=== PATIENT | female | born 1970 | race Two or more races ===

== ENCOUNTER 2019-01-23 21:51 | Emergency (ER) | payer SELFPAY ==
[~2019-01-23] VITALS: Ht 157.5 cm; Wt 79.4 kg
[2019-01-23 22:16] VITALS: BP 171/88
[2019-01-23] MEDS ORDERED: methylPREDNISolone SOD SUCC 125 MG/2 ML VL IV ONE (22:30)
[2019-01-24] MEDS ORDERED: diphenhdrAMINE HCL 50 MG/1 ML VL IV ONE (01:00)
== END 2019-01-24 01:58 | disposition home or self-care (01) ==
LOC: ER 21:52
DX: T78.40XA Allergy, unspecified, initial encounter (principal); X58.XXXA Exposure to other specified factors, initial encounter
CPT/HCPCS: 96374; 96375; 99283; J1200; J2930

== ENCOUNTER → 2019-08-10 | Emergency (ER) | payer MEDICAID, OTHER ==
[~2019-08-10] VITALS: Ht 160 cm; Wt 87.5 kg
[~2019-08-10] MED LIST: ACET250T3 PO; ACETAMINOPHEN 325 MG TAB PO ONE; CHOL20007 PO; HYDR-4833 PO; HYDROcodone-ACET 5/325MG TAB PO ONE; IOHEXOL 300 MG/ML 100ML BOTTLE IJ ONE; LISI-646 PO; MORPHINE SULFATE 4 MG/ML SYR/VIAL IV ONE; MULTLIQ36 PO; ONDA-144 PO; ONDANSETRON HCL 4 MG/2 ML VIAL IV ONE; POLY33504 PO; POTASSIUM CHL 20MEQ/100ML 100 ML IV ONE; PRAV20TA3 PO; SODIUM CHLORIDE 0.9% 1,000 ML IVB ONE; cefTRIAXone SOD 1,000 MG VL ONE
[2019-08-10 21:46] LABS: Basophils # (auto) 0 10 ^3/uL (0-0.2); Basophils % (auto) 0.1 % (0.0-2.0); Eosinophils # (auto) 0 10 ^3/uL (0-0.8); Hemoglobin 14.9 g/dL (12.2-16.2); Lymphocytes # (auto) 0.3 10 ^3/uL (0.4-5.4); Lymphocytes % (auto) 2.3 % (10.0-50.0); Mean Corpuscular Hemoglobin 31.9 pg (28.0-32.0); Mean Corpuscular Hgb Conc. 34.5 g/dL (32.0-36.0); Mean Corpuscular Volume 92.4 fL (80.0-100.0); Monocytes # (auto) 0.6 10 ^3/uL (0-1.3); Monocytes % (auto) 4.5 % (0.0-12.0); Neutrophils # (auto) 13.3 10 ^3/uL (1.6-8.6); Neutrophils % (auto) 93.1 % (37.0-80.0); Platelet Count (auto) 165 10^3/uL (140-450); Red Blood Cells 4.66 10^6/uL (4.0-5.20); Red Cell Distribution Width 13.7 % (11.8-14.3); White Blood Cell 14.3 10^3/uL (4.4-10.8)
[2019-08-10 21:57] LABS: Alanine Aminotransferase 124 U/L (13-56); Albumin 3.1 g/dL (3.4-5.0); Amylase 23 U/L (25-115); Anion Gap 10 (5-15); Aspartate Aminotransferase 133 U/L (15-37); Blood Urea Nitrogen 8 mg/dL (7-18); Calcium 8.6 mg/dL (8.5-10.1); Carbon Dioxide 22 mmol/L (21-32); Chloride 103 mmol/L (98-107); GFR African American 145 mL/min; GFR Non-African American 120 mL/min; Glucose 147 mg/dL (74-106); Lipase 49 U/L (73-393); Magnesium 1.9 mg/dL (1.6-2.6); Potassium 3.3 mmol/L (3.5-5.1); Sodium 135 mmol/L (136-145)
[2019-08-10 22:00] LABS: Alkaline Phosphatase 157 U/L (45-117); Total Protein 7.2 g/dL (6.4-8.2)
[2019-08-11 01:57] LABS: Urine Bacteria FEW /hpf (None Seen); Urine Blood 3+ /uL (Negative); Urine Specific Gravity > 1.050 (1.001-1.035); Urine WBC 1 /hpf (0 - 5)
[2019-08-11 05:30] VITALS: BP 129/77
== END | disposition home or self-care (01) ==
LOC: ER 19:59
DX: K56.7 Ileus, unspecified (principal); G89.18 Other acute postprocedural pain; R11.2 Nausea with vomiting, unspecified; Z98.84 Bariatric surgery status
CPT/HCPCS: 36415; 74177; 76705; 80053; 81001; 82150; 83605; 83690; 83735; 84702; 85025; 87040; 96361; 96374; 96375; 99285; J2270; J2405; J7030; Q9967

== ENCOUNTER 2019-08-12 18:05 | Inpatient (IN) | payer MEDICAID ==
[~2019-08-12] VITALS: Ht 160 cm; Wt 87.9 kg
[2019-08-12 18:45] LABS: Basophils # (auto) 0 10 ^3/uL (0-0.2); Basophils % (auto) 0.3 % (0.0-2.0); Eosinophils # (auto) 0 10 ^3/uL (0-0.8); Hemoglobin 14.1 g/dL (12.2-16.2); Lymphocytes # (auto) 0.4 10 ^3/uL (0.4-5.4); Lymphocytes % (auto) 2.8 % (10.0-50.0); Mean Corpuscular Hemoglobin 31.9 pg (28.0-32.0); Mean Corpuscular Hgb Conc. 34.4 g/dL (32.0-36.0); Mean Corpuscular Volume 92.5 fL (80.0-100.0); Monocytes # (auto) 0.7 10 ^3/uL (0-1.3); Monocytes % (auto) 5.1 % (0.0-12.0); Neutrophils # (auto) 13.1 10 ^3/uL (1.6-8.6); Neutrophils % (auto) 91.8 % (37.0-80.0); Platelet Count (auto) 193 10^3/uL (140-450); Red Blood Cells 4.44 10^6/uL (4.0-5.20); Red Cell Distribution Width 13.5 % (11.8-14.3); White Blood Cell 14.3 10^3/uL (4.4-10.8)
[2019-08-12 19:06] LABS: Albumin 2.7 g/dL (3.4-5.0); Calcium 8.6 mg/dL (8.5-10.1); Potassium 3.5 mmol/L (3.5-5.1)
[2019-08-12 19:10] LABS: BUN/Creatinine Ratio 16.9; Bilirubin, Total 2.7 mg/dL (0.2-1.0); Total Protein 7.4 g/dL (6.4-8.2)
[2019-08-12] MEDS ORDERED: SODIUM CHLORIDE 0.9% 1,000 ML IVB ONE (20:17)
[2019-08-12] MEDS ORDERED: ONDANSETRON HCL 4 MG/2 ML VIAL IV ONE (20:30)
[2019-08-12] MEDS ORDERED: MORPHINE SULFATE 4 MG/ML SYR/VIAL IV ONE (20:30)
[2019-08-12 20:44] LABS: INR 1.13 (0.9-1.15); Partial Thromboplastin Time 39.7 sec (23.64-32.05)
[2019-08-12] MEDS ORDERED: ACETAMINOPHEN 325 MG TAB PO ONE (21:00)
[2019-08-12 21:08] LABS: Urine WBC None Seen /hpf (0 - 5)
[2019-08-12 21:17] LABS: Urine Amorphous Crystal MANY /hpf (None Seen); Urine Bacteria NONE SEEN /hpf (None Seen); Urine Blood 2+ /uL (Negative); Urine Specific Gravity 1.027 (1.001-1.035)
[2019-08-13] MEDS ORDERED: SODIUM CHLORIDE 0.9% 1,000 ML IV SCH ×3 (02:37→16:00)
[2019-08-13] MEDS ORDERED: POTASSIUM CHL 20MEQ/100ML 100 ML IV ONE (02:45)
[2019-08-13] MEDS ORDERED: ACETAMINOPHEN 500 MG TAB PO PRN (02:45)
[2019-08-13 03:18] VITALS: BP 143/81
[2019-08-13] MEDS ORDERED: ACETAMINOPHEN 325 MG TAB PO PRN (03:30)
[2019-08-13 03:33] LABS: Basophils # (auto) 0 10 ^3/uL (0-0.2); Basophils % (auto) 0.2 % (0.0-2.0); Eosinophils # (auto) 0 10 ^3/uL (0-0.8); Eosinophils % (auto) 0.1 % (0.0-7.0); Hematocrit 38.7 % (36.0-46.0); Lymphocytes # (auto) 0.5 10 ^3/uL (0.4-5.4); Lymphocytes % (auto) 4.2 % (10.0-50.0); Mean Corpuscular Hemoglobin 31.1 pg (28.0-32.0); Mean Corpuscular Hgb Conc. 33.7 g/dL (32.0-36.0); Mean Corpuscular Volume 92.3 fL (80.0-100.0); Monocytes # (auto) 0.9 10 ^3/uL (0-1.3); Monocytes % (auto) 7.7 % (0.0-12.0); Neutrophils # (auto) 10.7 10 ^3/uL (1.6-8.6); Neutrophils % (auto) 87.8 % (37.0-80.0); Platelet Count (auto) 178 10^3/uL (140-450); Red Blood Cells 4.19 10^6/uL (4.0-5.20); Red Cell Distribution Width 13.8 % (11.8-14.3); White Blood Cell 12.1 10^3/uL (4.4-10.8)
[2019-08-13 03:52] LABS: Albumin 2.4 g/dL (3.4-5.0); Calcium 8.3 mg/dL (8.5-10.1); Magnesium 2.1 mg/dL (1.6-2.6); Potassium 3.1 mmol/L (3.5-5.1)
[2019-08-13 03:53] LABS: Lactate Dehydrogenase 195 U/L (84-246)
[2019-08-13 03:55] LABS: Bilirubin, Total 2.3 mg/dL (0.2-1.0); Total Protein 6.3 g/dL (6.4-8.2)
[2019-08-13 04:35] LABS: CRP High Sensitivity > 19.0 mg/dL (< 0.3)
[2019-08-13 05:00] VITALS: BP 133/88
[2019-08-13] MEDS ORDERED: PRAV20TA3 PO (05:30)
[2019-08-13] MEDS ORDERED: POLY33504 PO (05:30)
[2019-08-13] MEDS ORDERED: MULTLIQ36 PO (05:30)
[2019-08-13] MEDS ORDERED: ACET250T3 PO (05:30)
[2019-08-13] MEDS ORDERED: CHOL20007 PO (05:30)
[2019-08-13] MEDS ORDERED: LISI-646 PO (05:30)
[2019-08-13] MEDS ORDERED: ONDA-144 PO (05:30)
[2019-08-13] MEDS ORDERED: HYDR-4833 PO (05:30)
[2019-08-13] MEDS: MORPHINE SULFATE 4 MG/ML SYR/VIAL IV PRN ×4 (05:35→23:06)
[2019-08-13] MEDS: ONDANSETRON HCL 4 MG/2 ML VIAL IV PRN ×2 (05:35→23:06)
[2019-08-13] MEDS ORDERED: ALBUTEROL SULF HFA 90MCG INH 200DOSE IN SCH (06:00)
[2019-08-13] MEDS: ALBUTEROL SULF HFA 90MCG INH 200DOSE IN SCH ×3 (06:00→22:30)
[2019-08-13] MEDS: HYDROcodone-ACET 5/325MG TAB PO PRN (07:16)
[2019-08-13 07:21] LABS: Calcium 8.2 mg/dL (8.5-10.1); Potassium 3.2 mmol/L (3.5-5.1)
[2019-08-13 07:27] LABS: Basophils # (auto) 0 10 ^3/uL (0-0.2); Basophils % (auto) 0.1 % (0.0-2.0); Eosinophils # (auto) 0 10 ^3/uL (0-0.8); Eosinophils % (auto) 0.1 % (0.0-7.0); Hematocrit 38.4 % (36.0-46.0); Lymphocytes # (auto) 0.5 10 ^3/uL (0.4-5.4); Lymphocytes % (auto) 3.7 % (10.0-50.0); Mean Corpuscular Hemoglobin 31.4 pg (28.0-32.0); Mean Corpuscular Volume 92.6 fL (80.0-100.0); Monocytes # (auto) 0.9 10 ^3/uL (0-1.3); Monocytes % (auto) 6.7 % (0.0-12.0); Neutrophils # (auto) 11.6 10 ^3/uL (1.6-8.6); Neutrophils % (auto) 89.4 % (37.0-80.0); Platelet Count (auto) 164 10^3/uL (140-450); Red Blood Cells 4.15 10^6/uL (4.0-5.20); Red Cell Distribution Width 13.5 % (11.8-14.3); White Blood Cell 12.9 10^3/uL (4.4-10.8)
[2019-08-13] MEDS: cefTRIAXone 1GM/50ML D5W 50 ML IV SCH ×2 (07:50→09:33)
[2019-08-13 09:00] VITALS: BP 147/78
[2019-08-13] MEDS: CHOLECALCIFEROL (VITD3) 1,000IU=25mCg TAB PO SCH (09:28)
[2019-08-13] MEDS: ASCORBIC ACID 500 MG TAB PO SCH (09:29)
[2019-08-13] MEDS: AZITHROMYCIN 250 MG TAB PO SCH (09:30)
[2019-08-13] MEDS: PANTOPRAZOLE 40 MG TAB PO SCH (09:31)
[2019-08-13] MEDS: ENOXAPARIN SOD 40 MG/0.4 ML SYRINGE SC SCH (09:31)
[2019-08-13] MEDS: ZINC SULFATE 220mg CAP or TAB PO SCH (09:32)
[2019-08-13] MEDS ORDERED: POTASSIUM CHL 20 Meq TABLET PO ONE (10:00)
[2019-08-13 12:32] VITALS: BP 136/67
[2019-08-13] MEDS ORDERED: PIPERACILLIN-TAZO 4.5GM 100 ML IV ONE (14:00)
[2019-08-13 16:42] VITALS: BP 137/80
[2019-08-13] MEDS: PIPERACILLIN-TAZOB 3.375GM 100 ML IV SCH (18:00)
[2019-08-13 20:00] VITALS: BP 127/70
[2019-08-13] MEDS ORDERED: ALBUTEROL SULFATE 90 MCG MDI IN ONE (22:24)
[2019-08-14] MEDS: PIPERACILLIN-TAZOB 3.375GM 100 ML IV SCH ×5 (00:42→23:37)
[2019-08-14] MEDS: ALBUTEROL SULF HFA 90MCG INH 200DOSE IN SCH ×3 (06:25→21:08)
[2019-08-14] MEDS: MORPHINE SULFATE 4 MG/ML SYR/VIAL IV PRN ×3 (06:26→21:21)
[2019-08-14] MEDS: DOCUSATE SOD 100 MG CAP PO PRN (06:26)
[2019-08-14 10:00] VITALS: BP 132/74
[2019-08-14 10:03] LABS: Hepatitis B Surface Antibody Negative
[2019-08-14] MEDS: CHOLECALCIFEROL (VITD3) 1,000IU=25mCg TAB PO SCH (10:25)
[2019-08-14] MEDS: ASCORBIC ACID 500 MG TAB PO SCH (10:25)
[2019-08-14] MEDS: PANTOPRAZOLE 40 MG TAB PO SCH (10:25)
[2019-08-14] MEDS: ENOXAPARIN SOD 40 MG/0.4 ML SYRINGE SC SCH (10:25)
[2019-08-14] MEDS: ZINC SULFATE 220mg CAP or TAB PO SCH (10:26)
[2019-08-14] MEDS: AZITHROMYCIN 250 MG TAB PO SCH (10:26)
[2019-08-14 10:27] LABS: Hepatitis A Total Antibody Positive
[2019-08-14 11:32] LABS: Hepatitis B Core Total AB Negative
[2019-08-14 11:33] LABS: Hepatitis B Surface Antigen Negative (Negative); Hepatitis C Antibody Negative (Negative)
[2019-08-14] MEDS: HYDROcodone-ACET 5/325MG TAB PO PRN (12:06)
[2019-08-14 14:30] VITALS: BP 110/70
[2019-08-14 17:53] VITALS: BP 129/76
[2019-08-14 21:10] VITALS: BP 135/70
[2019-08-14 21:43] VITALS: BP 128/68
[2019-08-14 22:00] VITALS: BP 128/68
[2019-08-15 01:09] LABS: Amphetamine Screen, Urine NEGATIVE (NEGATIVE); Barbiturate Scree,Urine NEGATIVE (NEGATIVE); Benzodiazephine Screen, Urine NEGATIVE (NEGATIVE); Cannabinoid Screen, Urine NEGATIVE (NEGATIVE); Cocaine Screen, Urine NEGATIVE (NEGATIVE); Opiate Scree,Urine POSITIVE (NEGATIVE); Phencyclidine Screen, Urine NEGATIVE (NEGATIVE)
[2019-08-15] MEDS: HYDROcodone-ACET 5/325MG TAB PO PRN ×2 (03:56→10:45)
[2019-08-15] MEDS: DOCUSATE SOD 100 MG CAP PO PRN (03:57)
[2019-08-15 05:00] VITALS: BP 147/69
[2019-08-15 05:08] LABS: Hematocrit 36.3 % (36.0-46.0); Hemoglobin 12.4 g/dL (12.2-16.2); Mean Corpuscular Hemoglobin 31.4 pg (28.0-32.0); Mean Corpuscular Hgb Conc. 34.1 g/dL (32.0-36.0); Platelet Count (auto) 258 10^3/uL (140-450); Red Blood Cells 3.94 10^6/uL (4.0-5.20); Red Cell Distribution Width 13.6 % (11.8-14.3); White Blood Cell 7.8 10^3/uL (4.4-10.8)
[2019-08-15 05:22] LABS: INR 1.03 (0.9-1.15)
[2019-08-15 05:25] LABS: Basophils % (manual) 0 (0.0-2.0); Blast Cells 0; Metamyelocytes % 0; Myelocytes % 0; Promyelocytes % 0; Reactive Lymphocytes 0
[2019-08-15 05:27] LABS: Albumin 2.2 g/dL (3.4-5.0); Calcium 8.2 mg/dL (8.5-10.1); Potassium 3.2 mmol/L (3.5-5.1)
[2019-08-15 05:30] LABS: Bilirubin, Total 0.8 mg/dL (0.2-1.0); Total Protein 6.6 g/dL (6.4-8.2)
[2019-08-15] MEDS: PIPERACILLIN-TAZOB 3.375GM 100 ML IV SCH ×3 (05:34→17:50)
[2019-08-15] MEDS: ALBUTEROL SULF HFA 90MCG INH 200DOSE IN SCH (06:30)
[2019-08-15 07:07] LABS: Band Neutrophils % (manual) 3; Eosinophils % (manual) 1 (0-7); Lymphocytes % (manual) 35 (10.0-50.0); Monocytes % (manual) 7 (0-12)
[2019-08-15 08:37] VITALS: BP 129/85
[2019-08-15] MEDS: ASCORBIC ACID 500 MG TAB PO SCH (09:33)
[2019-08-15] MEDS: ZINC SULFATE 220mg CAP or TAB PO SCH (09:33)
[2019-08-15] MEDS: AZITHROMYCIN 250 MG TAB PO SCH (09:34)
[2019-08-15] MEDS: CHOLECALCIFEROL (VITD3) 1,000IU=25mCg TAB PO SCH (09:34)
[2019-08-15] MEDS: PANTOPRAZOLE 40 MG TAB PO SCH (09:34)
[2019-08-15] MEDS: ENOXAPARIN SOD 40 MG/0.4 ML SYRINGE SC SCH (09:34)
[2019-08-15] MEDS ORDERED: POTASSIUM CHL 20 Meq TABLET PO ONE (11:15)
[2019-08-15 12:28] VITALS: BP 139/72
[2019-08-15 16:46] VITALS: BP 136/89
[2019-08-15] MEDS: MORPHINE SULFATE 4 MG/ML SYR/VIAL IV PRN (17:55)
[2019-08-16] MEDS: PIPERACILLIN-TAZOB 3.375GM 100 ML IV SCH ×4 (00:43→18:00)
[2019-08-16 05:00] VITALS: BP 132/81
[2019-08-16] MEDS: HYDROcodone-ACET 5/325MG TAB PO PRN (05:51)
[2019-08-16 06:12] LABS: Hemoglobin 12.3 g/dL (12.2-16.2); Red Cell Distribution Width 13.9 % (11.8-14.3)
[2019-08-16 06:19] LABS: Mean Corpuscular Hemoglobin 30.7 pg (28.0-32.0); Mean Corpuscular Hgb Conc. 33.4 g/dL (32.0-36.0); Platelet Count (auto) 304 10^3/uL (140-450); Red Blood Cells 4.02 10^6/uL (4.0-5.20); White Blood Cell 7.4 10^3/uL (4.4-10.8)
[2019-08-16 06:20] LABS: Potassium 3.5 mmol/L (3.5-5.1)
[2019-08-16 06:27] LABS: Blast Cells 0; Promyelocytes % 0
[2019-08-16 06:32] LABS: Albumin 2.2 g/dL (3.4-5.0); BUN/Creatinine Ratio 8.3; Bilirubin, Total 0.5 mg/dL (0.2-1.0); Calcium 8.2 mg/dL (8.5-10.1); Magnesium 2.2 mg/dL (1.6-2.6); Total Protein 6.4 g/dL (6.4-8.2)
[2019-08-16 07:13] LABS: Band Neutrophils % (manual) 2; Basophils % (manual) 2 (0.0-2.0); Eosinophils % (manual) 7 (0-7); Lymphocytes % (manual) 32 (10.0-50.0); Metamyelocytes % 3; Monocytes % (manual) 6 (0-12); Myelocytes % 3; Reactive Lymphocytes 2
[2019-08-16 09:00] VITALS: BP 114/62
[2019-08-16] MEDS: ENOXAPARIN SOD 40 MG/0.4 ML SYRINGE SC SCH (10:00)
[2019-08-16] MEDS ORDERED: SODIUM CHLORIDE LOCK 10 ML ONE (10:03)
[2019-08-16] MEDS ORDERED: LIDOCAINE VISCOUS 2% 15ML UD ONE (10:03)
[2019-08-16] MEDS ORDERED: diphenhdrAMINE HCL 50 MG/1 ML VL ONE (10:04)
[2019-08-16] MEDS: PANTOPRAZOLE 40 MG TAB PO SCH (10:18)
[2019-08-16 13:00] VITALS: BP 139/73
[2019-08-16] MEDS: MIDAZOLAM HCL 5 MG/ML-1ML VIAL ONE ×2 (13:40→13:43)
[2019-08-16] MEDS: fentaNYL CITRATE 100 MCG/2 ML VL ONE ×2 (13:40→13:43)
[2019-08-16 17:00] VITALS: BP 147/82
[2019-08-16] MEDS ORDERED: SUCRALFATE 1 GM/10 ML ORAL SUSP PO SCH (17:00)
== END 2019-08-16 20:40 | disposition home or self-care (01) | DRG 720 ==
LOC: ER 18:05 → TELE-EAST 18:06 → UNDOADMIN 18:06 → TELE 18:06 → TELE-CENTR 08-14 21:40
PROVIDERS: ADMIT Hospitalist; ATTEND Internal Medicine
PROC: 0DB88ZX Excision of Small Intestine, Via Natural or Artificial Opening Endoscopic, Diagnostic (ICD-10-PCS; 2019-08-16)
PROC: 0DB68ZX Excision of Stomach, Via Natural or Artificial Opening Endoscopic, Diagnostic (ICD-10-PCS; principal; 2019-08-16 13:35)
DX: A41.9 Sepsis, unspecified organism (principal); E44.0 Moderate protein-calorie malnutrition; K22.10 Ulcer of esophagus without bleeding; K83.8 Other specified diseases of biliary tract; E66.9 Obesity, unspecified; N83.209 Unspecified ovarian cyst, unspecified side; I88.9 Nonspecific lymphadenitis, unspecified; N39.0 Urinary tract infection, site not specified; Z90.49 Acquired absence of other specified parts of digestive tract; Z83.3 Family history of diabetes mellitus; Z82.49 Family history of ischemic heart disease and other diseases of the circulatory system; Z03.818 Encounter for observation for suspected exposure to other biological agents ruled out; Z68.34 Body mass index [BMI] 34.0-34.9, adult
CPT/HCPCS: 36415; 43239; 71045; 74176; 74181; 80048; 80053; 80307; 81001; 81025; 82105; 82728; 83516; 83605; 83615; 83690; 83735; 84443; 85007; 85025; 85027; 85379; 85610; 85730; 86038; 86141; 86225; 86235; 86704; 86706; 86708; 86803; 86850; 86900; 86901; 87040; 87070; 87081; 87340; 87804; 87880; 94640; 96361; 96365; 96375; G0378; J0696; J2250; J2405; J2543

== ENCOUNTER 2022-06-18 14:40 | Emergency (ER) | payer MEDICAID ==
[~2022-06-18] VITALS: Ht 160 cm; Wt 94.0 kg
[~2022-06-18 14:40] MED LIST changes: -ACETAMINOPHEN 325 MG TAB PO ONE; -HYDROcodone-ACET 5/325MG TAB PO ONE; -IOHEXOL 300 MG/ML 100ML BOTTLE IJ ONE; -LISI-646 PO; +LISI20TA28 PO; -MORPHINE SULFATE 4 MG/ML SYR/VIAL IV ONE; -ONDANSETRON HCL 4 MG/2 ML VIAL IV ONE; -POTASSIUM CHL 20MEQ/100ML 100 ML IV ONE; -SODIUM CHLORIDE 0.9% 1,000 ML IVB ONE; -cefTRIAXone SOD 1,000 MG VL ONE
[2022-06-18 15:10] VITALS: BP 123/90
[2022-06-18] MEDS ORDERED: PRED20TA2 PO (16:17)
[2022-06-18] MEDS ORDERED: AUG875T PO (16:17)
== END 2022-06-18 16:24 | disposition home or self-care (01) ==
LOC: ER 14:40
DX: J06.9 Acute upper respiratory infection, unspecified (principal); H66.92 Otitis media, unspecified, left ear; R07.89 Other chest pain; I10 Essential (primary) hypertension; E78.5 Hyperlipidemia, unspecified; Z90.49 Acquired absence of other specified parts of digestive tract; Z79.2 Long term (current) use of antibiotics; Z79.899 Other long term (current) drug therapy
CPT/HCPCS: 71046

== ENCOUNTER 2022-11-08 12:15 | Inpatient (IN) | payer MEDICAID ==
[~2022-11-08] VITALS: Ht 157.5 cm; Wt 94.9 kg
[~2022-11-08 12:15] MED LIST changes: +ACET250T20 PO; -ACET250T3 PO; +AUG875T PO; -LISI20TA28 PO; +LISI20TA56 PO; +PRED20TA2 PO
[2022-11-08 13:33] LABS: Basophils # (auto) 0.1 10 ^3/uL (0-0.2); Basophils % (auto) 0.7 % (0.0-2.0); Eosinophils # (auto) 0.3 10 ^3/uL (0-0.8); Eosinophils % (auto) 3.8 % (0.0-7.0); Hematocrit 42.6 % (36.0-46.0); Hemoglobin 14.4 g/dL (12.2-16.2); Lymphocytes # (auto) 0.8 10 ^3/uL (0.4-5.4); Lymphocytes % (auto) 10.2 % (10.0-50.0); Mean Corpuscular Hemoglobin 30.3 pg (28.0-32.0); Mean Corpuscular Hgb Conc. 33.9 g/dL (32.0-36.0); Mean Corpuscular Volume 89.5 fL (80.0-100.0); Monocytes # (auto) 0.3 10 ^3/uL (0-1.3); Monocytes % (auto) 3.4 % (0.0-12.0); Neutrophils # (auto) 6.3 10 ^3/uL (1.6-8.6); Neutrophils % (auto) 81.9 % (37.0-80.0); Nucleated Red Blood Cells % 0.2 %; Red Blood Cells 4.76 10^6/uL (4.0-5.20); White Blood Cell 7.7 10^3/uL (4.4-10.8)
[2022-11-08 13:41] LABS: Albumin 3.5 g/dL (3.4-5.0); Calcium 8.8 mg/dL (8.5-10.1); Magnesium 1.8 mg/dL (1.6-2.6); Potassium 4.2 mmol/L (3.5-5.1)
[2022-11-08 13:44] LABS: INR 1.05 (0.9-1.15); Partial Thromboplastin Time 30.5 SEC (24.5-34.5)
[2022-11-08 13:45] LABS: BUN/Creatinine Ratio 10.6 (10.0-20.0); Bilirubin, Total 1.1 mg/dL (0.2-1.0); Total Protein 6.5 g/dL (6.4-8.2)
[2022-11-08] MEDS ORDERED: OMNIPAQUE 12mg/ml 500ml ORAL SOLUTION PO ONE (13:53)
[2022-11-08] MEDS ORDERED: IOHEXOL 300 MG/ML 100ML BOTTLE IJ ONE (13:53)
[2022-11-08 13:57] LABS: Urine Bacteria NONE SEEN /hpf (None Seen); Urine Blood Negative /uL (Negative); Urine Hyaline Cast FEW /lpf (0 - 2); Urine WBC 1 /hpf (0 - 5)
[2022-11-08] MEDS: METOPROLOL TARTRATE 1MG/1ML-5ML VIAL IV SCH ×4 (14:55→16:26)
[2022-11-08] MEDS ORDERED: ADENOSINE 6 MG/2 ML INJ IV ONE (16:30)
[2022-11-08] MEDS ORDERED: AMIODARONE HCL 150 MG in D5W 5% 100 ML IV ONE (16:45)
[2022-11-08] MEDS ORDERED: DIGOXIN (250MCG/ML) 2 ML AMPULE IV ONE (17:00)
[2022-11-08] MEDS ORDERED: LACTATED RINGER'S 1,000 ML IV ONE (17:00)
[2022-11-08] MEDS ORDERED: dilTIAZem 25 MG/5 ML VIAL IV ONE (17:00)
[2022-11-08] MEDS ORDERED: AMIODARONE 450mg/250ml AE 250 ML IV SCH ×2 (17:00→23:00)
[2022-11-08] MEDS ORDERED: dilTIAZem 25 MG/5 ML VIAL IV PRN (17:00)
[2022-11-08] MEDS ORDERED: HYDROcodone-ACET 5/325MG TAB PO PRN (17:15)
[2022-11-08] MEDS ORDERED: PHENYLEPHRINE IV 250 ML IV SCH (17:15)
[2022-11-08] MEDS ORDERED: MORPHINE SULFATE INJ 2 MG/ml SYRG IV PRN (17:15)
[2022-11-08] MEDS ORDERED: ACETAMINOPHEN 325 MG TAB PO PRN (17:15)
[2022-11-08] MEDS ORDERED: DOCUSATE SOD 100 MG CAP PO PRN (17:15)
[2022-11-08] MEDS ORDERED: NITROGLYCERIN 0.4 MG SL TAB SL PRN (17:15)
[2022-11-08] MEDS ORDERED: ceFAZolin 1GM/50ML 50 ML IV ONE (18:15)
[2022-11-08] MEDS ORDERED: LORazepam 2MG/ML-1ML VIAL IV ONE (18:15)
[2022-11-08] MEDS: ENOXAPARIN SOD 100 MG/1 ML SYRINGE SC SCH (19:59)
[2022-11-08] MEDS: AMIODARONE 450mg/250ml AE 250 ML IV SCH (20:37)
[2022-11-08] MEDS: SODIUM CHLOR 0.9% PF (SALINE LOCK) 10ML VIAL/SYR IV SCH (21:50)
[2022-11-08] MEDS: DIGOXIN (250MCG/ML) 2 ML AMPULE IV SCH (23:15)
[2022-11-09] MEDS: DIGOXIN (250MCG/ML) 2 ML AMPULE IV SCH ×3 (05:15→17:15)
[2022-11-09] MEDS: SODIUM CHLOR 0.9% PF (SALINE LOCK) 10ML VIAL/SYR IV SCH ×3 (06:14→22:00)
[2022-11-09] MEDS: AMIODARONE 450mg/250ml AE 250 ML IV SCH (06:14)
[2022-11-09] MEDS: ENOXAPARIN SOD 100 MG/1 ML SYRINGE SC SCH ×2 (06:22→18:32)
[2022-11-09] MEDS ORDERED: ENOXAPARIN SOD 40 MG/0.4 ML SYRINGE SC SCH (10:00)
[2022-11-09] MEDS: CHOLECALCIFEROL (VITD3) 2,000 UNIT CAP/TAB PO SCH (10:01)
[2022-11-09] MEDS: PRAVASTATIN SODIUM 20 MG TAB PO SCH (10:02)
[2022-11-09] MEDS: MULTIPLE VITAMINS W/ MINERALS TAB PO SCH (10:02)
[2022-11-09] MEDS: LISINOPRIL 20 MG TAB PO SCH (10:03)
[2022-11-09] MEDS ORDERED: PANTOPRAZOLE 40 MG/10 ML VIAL INJ IV ONE (17:45)
[2022-11-09] MEDS ORDERED: SODIUM CHLORIDE 0.9% 1,000 ML IV ONE (18:45)
[2022-11-09 18:55] LABS: Cholesterol 151 mg/dL (< 200); HDL Cholesterol 55 mg/dL (40-59); LDL Cholesterol 86 mg/dL (< 100); Triglycerides 110 mg/dL (< 150)
[2022-11-09 22:00] VITALS: BP 151/72
[2022-11-09] MEDS ORDERED: OMEP20TA PO (22:46)
[2022-11-09] MEDS ORDERED: METO25TA5 PO (22:46)
[2022-11-09 23:02] VITALS: BP 151/72
[2022-11-10 05:00] VITALS: BP 116/51
[2022-11-10 06:03] LABS: Basophils # (auto) 0 10 ^3/uL (0-0.2); Basophils % (auto) 0.4 % (0.0-2.0); Eosinophils # (auto) 0.4 10 ^3/uL (0-0.8); Hematocrit 38.2 % (36.0-46.0); Lymphocytes # (auto) 1.3 10 ^3/uL (0.4-5.4); Mean Corpuscular Hemoglobin 30.6 pg (28.0-32.0); Mean Corpuscular Hgb Conc. 34.2 g/dL (32.0-36.0); Mean Corpuscular Volume 89.5 fL (80.0-100.0); Monocytes # (auto) 0.5 10 ^3/uL (0-1.3); Monocytes % (auto) 7.2 % (0.0-12.0); Neutrophils # (auto) 4.8 10 ^3/uL (1.6-8.6); Neutrophils % (auto) 68.4 % (37.0-80.0); Nucleated Red Blood Cells % 0.2 %; Red Blood Cells 4.26 10^6/uL (4.0-5.20); Red Cell Distribution Width 14.1 % (11.8-14.3)
[2022-11-10] MEDS: SODIUM CHLOR 0.9% PF (SALINE LOCK) 10ML VIAL/SYR IV SCH ×3 (06:06→22:00)
[2022-11-10] MEDS: ENOXAPARIN SOD 100 MG/1 ML SYRINGE SC SCH (06:12)
[2022-11-10 07:28] LABS: Albumin 2.8 g/dL (3.4-5.0); BUN/Creatinine Ratio 8.3 (10.0-20.0); Calcium 8.1 mg/dL (8.5-10.1); Phosphorus 3.2 mg/dL (2.5-4.90)
[2022-11-10] MEDS: METOPROLOL SUCCINATE XL 50 MG TAB PO SCH (08:35)
[2022-11-10] MEDS: PRAVASTATIN SODIUM 20 MG TAB PO SCH (08:41)
[2022-11-10] MEDS: CHOLECALCIFEROL (VITD3) 2,000 UNIT CAP/TAB PO SCH (08:41)
[2022-11-10] MEDS: ASPirin 81 mg TAB PO SCH (08:41)
[2022-11-10] MEDS: LISINOPRIL 20 MG TAB PO SCH (08:41)
[2022-11-10] MEDS: MULTIPLE VITAMINS W/ MINERALS TAB PO SCH (08:41)
[2022-11-10 09:00] VITALS: BP 116/55
[2022-11-10] MEDS ORDERED: PANTOPRAZOLE 40 MG/10 ML VIAL INJ IV SCH (10:00)
[2022-11-10 13:00] VITALS: BP 125/59
[2022-11-10] MEDS ORDERED: POTASSIUM CHL 20 Meq TABLET PO ONE (15:00)
[2022-11-10 17:00] VITALS: BP 123/57
[2022-11-10 22:01] VITALS: BP 110/51
[2022-11-11 05:00] VITALS: BP 107/48
[2022-11-11 06:18] LABS: Potassium 3.2 mmol/L (3.5-5.1)
[2022-11-11] MEDS: SODIUM CHLOR 0.9% PF (SALINE LOCK) 10ML VIAL/SYR IV SCH ×2 (06:22→14:03)
[2022-11-11 06:23] LABS: BUN/Creatinine Ratio 9.8 (10.0-20.0); Calcium 8.2 mg/dL (8.5-10.1)
[2022-11-11] MEDS ORDERED: POTASSIUM CHL 20 Meq TABLET PO ONE ×2 (07:45→20:00)
[2022-11-11] MEDS: MULTIPLE VITAMINS W/ MINERALS TAB PO SCH (08:47)
[2022-11-11] MEDS: ASPirin 81 mg TAB PO SCH (08:47)
[2022-11-11] MEDS: PRAVASTATIN SODIUM 20 MG TAB PO SCH (08:47)
[2022-11-11] MEDS: METOPROLOL SUCCINATE XL 50 MG TAB PO SCH (08:50)
[2022-11-11 08:57] VITALS: BP 112/59
[2022-11-11] MEDS ORDERED: PANTOPRAZOLE 40 MG TAB PO SCH (10:00)
[2022-11-11] MEDS ORDERED: LISINOPRIL 20 MG TAB PO SCH (10:00)
[2022-11-11] MEDS ORDERED: MET25T PO (11:49)
[2022-11-11 13:07] VITALS: BP 112/59
== END 2022-11-11 14:10 | disposition home or self-care (01) | DRG 201 ==
LOC: ER 12:15 → TELE 17:12 → TELE-WESTW 11-09 22:00
PROVIDERS: ADMIT Internal Medicine; ATTEND Internal Medicine
DX: I47.1 Supraventricular tachycardia (principal); I48.92 Unspecified atrial flutter; E11.9 Type 2 diabetes mellitus without complications; I10 Essential (primary) hypertension; E66.9 Obesity, unspecified; E78.5 Hyperlipidemia, unspecified; E87.6 Hypokalemia; Z68.38 Body mass index [BMI] 38.0-38.9, adult; Z79.82 Long term (current) use of aspirin; Z98.84 Bariatric surgery status; Z90.49 Acquired absence of other specified parts of digestive tract; Z82.49 Family history of ischemic heart disease and other diseases of the circulatory system; Z83.3 Family history of diabetes mellitus
CPT/HCPCS: 36415; 71045; 74177; 80048; 80053; 80061; 80162; 81001; 82040; 83735; 84100; 84439; 84443; 84484; 85025; 85379; 85610; 85730; 93005; 93306; 93970; 96365; 96375; C9113; G0378; J0153; J0690; J7060

== ENCOUNTER 2022-12-29 15:41 | Emergency (ER) | payer MEDICAID ==
[~2022-12-29] VITALS: Ht 160 cm; Wt 91.8 kg
[~2022-12-29 15:41] MED LIST changes: -AUG875T PO; -HYDR-4833 PO; +MET25T PO; +METO25TA5 PO; +OMEP20TA PO; -ONDA-144 PO; -POLY33504 PO; -PRED20TA2 PO
[2022-12-29 16:13] LABS: Basophils # (auto) 0 10 ^3/uL (0-0.2); Basophils % (auto) 0.8 % (0.0-2.0); Eosinophils # (auto) 0.2 10 ^3/uL (0-0.8); Eosinophils % (auto) 2.7 % (0.0-7.0); Hematocrit 43.2 % (36.0-46.0); Hemoglobin 14.1 g/dL (12.2-16.2); Lymphocytes % (auto) 34.1 % (10.0-50.0); Mean Corpuscular Hemoglobin 29.4 pg (28.0-32.0); Mean Corpuscular Hgb Conc. 32.8 g/dL (32.0-36.0); Mean Corpuscular Volume 89.7 fL (80.0-100.0); Monocytes # (auto) 0.5 10 ^3/uL (0-1.3); Monocytes % (auto) 8.5 % (0.0-12.0); Neutrophils # (auto) 3.1 10 ^3/uL (1.6-8.6); Neutrophils % (auto) 53.9 % (37.0-80.0); Red Blood Cells 4.82 10^6/uL (4.0-5.20); Red Cell Distribution Width 14.5 % (11.8-14.3); White Blood Cell 5.8 10^3/uL (4.4-10.8)
[2022-12-29 16:33] LABS: Alanine Aminotransferase 17 U/L (7-40); Alkaline Phosphatase 114 U/L (46-116); Anion Gap 9.6 (5-15); Aspartate Aminotransferase 14 U/L (13-40); BUN/Creatinine Ratio 28.1 (10.0-20.0); Blood Urea Nitrogen 18 mg/dL (9-23); Calcium 9.4 mg/dL (8.7-10.4); Carbon Dioxide 22.4 mmol/L (20-30); Chloride 106 mmol/L (98-107); Glucose 109 mg/dL (74-106); Potassium 4.3 mmol/L (3.5-5.1); Sodium 138 mmol/L (136-145)
[2022-12-29 16:34] LABS: Albumin 4.2 g/dL (3.2-4.8); Bilirubin, Total 1.8 mg/dL (0.2-1.0); Total Protein 6.6 g/dL (5.7-8.2)
[2022-12-29 17:18] LABS: Urine Bacteria FEW /hpf (None Seen); Urine Blood Negative /uL (Negative); Urine Clarity Clear (Clear); Urine Color Colorless (Yellow); Urine Protein, UAD Negative (Negative); Urine Specific Gravity 1.006 (1.001-1.035); Urine Urobilinogen Normal (Negative); Urine WBC <1 /hpf (0 - 5)
[2022-12-29 20:39] VITALS: BP 125/82; PULSE 88; RESP 18; O2SAT 98
== END 2022-12-29 20:41 | disposition home or self-care (01) ==
LOC: ER 15:41
DX: R07.9 Chest pain, unspecified (principal); R00.2 Palpitations; R94.6 Abnormal results of thyroid function studies; R06.02 Shortness of breath; Z32.02 Encounter for pregnancy test, result negative
CPT/HCPCS: 36415; 71045; 80053; 81001; 81025; 83880; 84443; 84484; 85025; 93005

== ENCOUNTER 2023-02-01 03:21 | Emergency (ER) | payer MEDICAID ==
[~2023-02-01] VITALS: Ht 160 cm; Wt 91.3 kg
[2023-02-01 03:52] LABS: Basophils # (auto) 0 10 ^3/uL (0-0.2); Basophils % (auto) 0.6 % (0.0-2.0); Eosinophils # (auto) 0.2 10 ^3/uL (0-0.8); Eosinophils % (auto) 2.3 % (0.0-7.0); Hematocrit 39.8 % (36.0-46.0); Hemoglobin 13.2 g/dL (12.2-16.2); Lymphocytes # (auto) 1.6 10 ^3/uL (0.4-5.4); Lymphocytes % (auto) 23.8 % (10.0-50.0); Mean Corpuscular Hemoglobin 29.9 pg (28.0-32.0); Mean Corpuscular Hgb Conc. 33.1 g/dL (32.0-36.0); Mean Corpuscular Volume 90.5 fL (80.0-100.0); Monocytes # (auto) 0.4 10 ^3/uL (0-1.3); Monocytes % (auto) 6.2 % (0.0-12.0); Neutrophils # (auto) 4.6 10 ^3/uL (1.6-8.6); Neutrophils % (auto) 67.1 % (37.0-80.0); White Blood Cell 6.8 10^3/uL (4.4-10.8)
[2023-02-01 04:05] VITALS: PULSE 69; RESP 12; O2SAT 91
[2023-02-01 04:09] LABS: Alanine Aminotransferase 14 U/L (7-40); Albumin 4.3 g/dL (3.2-4.8); Alkaline Phosphatase 109 U/L (46-116); Anion Gap 6 (5-15); Aspartate Aminotransferase 14 U/L (13-40); BUN/Creatinine Ratio 23.6 (10.0-20.0); Bilirubin, Total 0.6 mg/dL (0.2-1.0); Blood Urea Nitrogen 17 mg/dL (9-23); Calcium 9.3 mg/dL (8.7-10.4); Carbon Dioxide 24 mmol/L (20-30); Chloride 110 mmol/L (98-107); Glucose 102 mg/dL (74-106); Potassium 3.7 mmol/L (3.5-5.1); Sodium 140 mmol/L (136-145); Total Protein 6.9 g/dL (5.7-8.2)
[2023-02-01 05:55] VITALS: BP 128/62; PULSE 58; RESP 18; TEMP 97.9; O2SAT 99
== END 2023-02-01 05:57 | disposition home or self-care (01) ==
LOC: ER 03:21
DX: I48.92 Unspecified atrial flutter (principal); R00.2 Palpitations; I10 Essential (primary) hypertension; E78.5 Hyperlipidemia, unspecified; Z90.49 Acquired absence of other specified parts of digestive tract
CPT/HCPCS: 36415; 71045; 80053; 84484; 85025; 93005

== ENCOUNTER 2023-03-24 19:43 | Emergency (ER) | payer MEDICAID ==
[~2023-03-24] VITALS: Ht 160 cm; Wt 94.8 kg
[2023-03-24 20:01] VITALS: BP 153/73; PULSE 80; RESP 18; O2SAT 98
== END 2023-03-25 02:46 | disposition left against medical advice (07) ==
LOC: ER 19:43
DX: T78.40XA Allergy, unspecified, initial encounter (principal); Z53.21 Procedure and treatment not carried out due to patient leaving prior to being seen by health care provider; Y92.89 Other specified places as the place of occurrence of the external cause

== ENCOUNTER 2024-11-21 06:08 | Inpatient (IN) | payer MEDICAID ==
[2024-11-17 10:15] LABS: Hematocrit 39.3 % (36.0-46.0); Hemoglobin 13.4 g/dL (12.2-16.2); Mean Corpuscular Hemoglobin 30.3 pg (28.0-32.0); Mean Corpuscular Volume 88.7 fL (80.0-100.0); Nucleated Red Blood Cells % 0.1 %
[2024-11-17 10:18] LABS: Urine Protein, UAD Negative (Negative)
[2024-11-17 10:26] LABS: INR 1.02 (0.9-1.15); Partial Thromboplastin Time 32.2 SEC (24.5-34.5); Prothrombin Time 10.8 sec (9.3-11.8)
[2024-11-17 10:39] LABS: Alanine Aminotransferase 16 U/L (7-40); Albumin 4.3 g/dL (3.2-4.8); Alkaline Phosphatase 108 U/L (46-116); Anion Gap 8 (5-15); BUN/Creatinine Ratio 14.5 (10.0-20.0); Blood Urea Nitrogen 9 mg/dL (9-23); Calcium 9.6 mg/dL (8.7-10.4); Carbon Dioxide 26 mmol/L (20-31); Glucose 86 mg/dL (74-106); Potassium 3.9 mmol/L (3.5-5.1); Sodium 142 mmol/L (136-145); Total Protein 6.4 g/dL (5.7-8.2)
[2024-11-17 10:43] LABS: Bilirubin, Total 1.6 mg/dL (0.2-1.0); Chloride 108 mmol/L (98-107)
[~2024-11-21] VITALS: Ht 160 cm; Wt 82.1 kg
[2024-11-21] MEDS: TRANEXAMIC ACID 20 ML ONE (07:09)
[2024-11-21] MEDS: BUPIVACAINE 0.25% INJ 50ML VIAL ONE (07:09)
[2024-11-21] MEDS: KETOROLAC TROMETH 30 MG/ML 1ML VIAL ONE (07:11)
[2024-11-21] MEDS: CELECOXIB 100 MG CAP ONE (07:12)
[2024-11-21] MEDS: ACETAMINOPHEN IV 100 ML IV ONE (07:12)
[2024-11-21] MEDS: GABAPENTIN 300 MG CAP PO ONE (07:12)
[2024-11-21] MEDS: GABAPENTIN 300 MG CAP ONE (07:12)
[2024-11-21] MEDS: CELECOXIB 100 MG CAP PO ONE (07:12)
[2024-11-21] MEDS: ACETAMINOPHEN IV 1000 MG/100ML (10MG/ML) IV ONE (07:12)
[2024-11-21] MEDS: CEFEPIME 1GM/ 50ML 50 ML IV ONE (07:59)
[2024-11-21] MEDS: ceFAZolin 2 GM/D5W50ml 50 ML IV ONE (07:59)
[2024-11-21] MEDS ORDERED: PROPOFOL 10 MG/ML 20 ML IV ONE ×3 (08:21→09:44)
[2024-11-21] MEDS ORDERED: GLYCOPYRROLATE 0.2 MG/ML 1ML VIAL ONE (08:21)
[2024-11-21] MEDS ORDERED: ONDANSETRON HCL 4 MG/2 ML VIAL ONE (08:21)
[2024-11-21] MEDS ORDERED: KETOROLAC TROMETH 30 MG/ML 1ML VIAL ONE (08:21)
[2024-11-21] MEDS ORDERED: LIDOCAINE 1% INJ PF 5ML AMP ONE (08:21)
[2024-11-21] MEDS: VANCOMYCIN HCL 1000 MG VL ONE (09:38)
--- NOTE | 2024-11-21 09:55 | DVHOP2 ---
Operative Report - 2 Report Details Date: 11/21/24 Preop Diagnosis: Left knee degenerative arthritis Postop Diagnosis: Left knee degenerative arthritis Surgeon: Ilda Rueda MD Game Programmer: Richa PIRES Anesthesiologist: Cezar Johnson CRNA Anesthesia: Regional Drains: Anatoliy closed wound suction Implant: DonJoy size seven femur size six tibia size 19 poly size 29 patella Consent: The patient was informed of the risks and benefits of the procedure. These include but are not limited to complications of anesthesia, postoperative infection, incomplete relief of symptoms, recurrence of symptoms, damage to blood vessels, nerves and tendons, deep venous thrombosis, pulmonary embolism and possible need for repeat surgery in the future. Complications: None Estimated Blood Loss: 75 cc Fluids: See anesthesia record Findings: Varus deformity, denuded cartilage with eburnated bone, osteophytes Indications for Surgery: Left knee degenerative arthritis with severe pain and functional impairment despite nonoperative management Name of Procedure Performed Left total knee arthroplasty Procedure Details Procedure Details: The patient was brought to the operating room and placed on the table in the supine position after being given spinal anesthetic with adequate analgesia obtained. Surgical timeout was performed verifying patient, laterality and procedure Preop patient received IV cefepime IV Ancef and IV tranexamic acid. Tourniquet was applied to the lower extremity. Lower extremity was prepped and draped in sterile fashion. Extremity was elevated, exsanguinated Esmarch, and tourniquet inflated. Midline incision was made followed by medial arthrotomy. I exposed the anterior medial and lateral tibial plateau and the anterior distal femur. Bovie and aqua mantis were used for hemostasis. I excised the anterior meniscal tissue with Bovie. I excised a portion of the fat pad with Bovie. The patella was everted and the knee flexed. I drilled the distal femur and suctioned the hole to reduce the risk of fat emboli. I inserted intramedullary guide with 5 degree valgus setting. I pinned the distal femoral cutting block anteriorly. Intramedullary kike was removed. Distal femoral cut was made and the block removed. I brought my attention to the tibia setting up the external cutting jig for the tibia paying attention to slope, rotation and varus valgus alignment. I set the depth and pinned the block. I used the external alignment kike to aid in checking alignment. Bone cut was made and bone removed releasing soft tissue attachments with Bovie. Cutting block removed. I then checked the extension gap and deemed adequate and removed the femur and tibia pins. I flexed the knee and applied the femoral sizing guide to the femur. I checked the size and external rotation setting at 90 degrees to Whites[place] line and checking the epicondylar axis. I drilled the holes then removed the sizing guide and pin. I then tapped on the 4 in 1 cutting block and checked with the carolyn wing anteriorly to make sure that I would not notch then pinned the block. Cuts were made and the block and pins were removed. Bone was removed with curved osteotome. I used a rongeur to remove any remaining osteophytes at the femur and tibia. I then used a lamina evs attendant to open up the back alternating between the medial and lateral side. Any remaining meniscal tissue was excised with scalpel. I used curved osteotome, curette and rongeur to remove any posterior osteophytes. I prophylactically coagulated with aqua mantis. I then tapped on the template for the box cut and pinned it. Box cut was made and bone removed. Template and pin removed. I then tapped on the femoral trial. I then brought my attention back to the tibia sizing it. I used the external alignment kike to make sure that rotation and alignment were good. I made a Bovie berny at the tibial tray berny identifying rotation for later use. I tried various tibial polytrials. [I then brought my attention to the patella. I sequentially dissected soft tissue with Bovie. I checked the thickness with caliper. I set the appropriate depth of cut on the cutting guide. I attached the cutting guide made my cut. I then sized the patella and made my drill holes. I then placed the patella trial with appropriate depth based on overall precut thickness. ] The patella tracked nicely without thumb pressure. I removed the trials. I pinned the tray and used the reamer and keel punch. The implants were brought into the field while bone preparation was started. I used both normal saline irrigation and the CarboJet to prepare the bone. I used the bone from the cuts to graft the femoral tunnel. Once cement was ready I applied cement to the tibial implant and tibial bone tapped it on and removed excess cement in usual fashion. In similar fashion I tapped on the femoral implant. I inserted the trial polyethylene and brought the knee into 30 degrees flexion. [I then applied the patella implant in similar fashion holding pressure with the pressurization device.] I irrigated with bactisurge irrigant. Once cement cured, I checked stability and range of motion as well as patella tracking. I tested various polys until I was satisfied. tourniquet was released and hemostasis maintained with aqua mantis. I inserted the polyethylene and again checked stability. I used a 2 grams of vancomycin half of which was placed deep and half superficial. I repaired the extensor mechanism with the knee in flexion with #1 Ethibond interrupted [id number]. Deep subcutaneous tissue was closed with 0 Vicryl. Superficial subcutaneous tissue was closed with 2-0 vicryl interrupted. Skin was closed with brianna. I then applied the [anatoliy closed wound suction]. Patient tolerated the procedure well and was brought to recovery room in stable condition. Condition Stable Disposition Still a Patient ILDA RUEDA MD Nov 21, 2024 09:55
[2024-11-21] MEDS: METOPROLOL TARTRATE 25 MG TAB PO SCH (10:00)
[2024-11-21] MEDS: LISINOPRIL 20 MG TAB PO SCH (10:00)
[2024-11-21] MEDS: PREGABALIN 25 MG CAP PO SCH (10:00)
[2024-11-21] MEDS: D5W/LACTATED RINGERS 1,000 ML IV SCH (10:00)
[2024-11-21] MEDS ORDERED: ACETAMINOPHEN 325 MG TAB PO PRN (10:00)
[2024-11-21] MEDS: acetaZOLAMIDE 250 MG TAB PO SCH (10:00)
[2024-11-21] MEDS: PRAVASTATIN SODIUM 20 MG TAB PO SCH (10:00)
[2024-11-21] MEDS ORDERED: PATIENTS OWN MEDICATION (Omeprazole (Gnp Omeprazole) 40 MG) PO SCH (10:00)
[2024-11-21 10:19] VITALS: PULSE 67; RESP 16; O2SAT 100
[2024-11-21] MEDS ORDERED: fentaNYL CITRATE 100 MCG/2 ML VL IV PRN (10:30)
[2024-11-21] MEDS ORDERED: FLUMAZENIL 0.1 MG/ML INJ 10ML MDV IV PRN (10:30)
[2024-11-21] MEDS ORDERED: ONDANSETRON HCL 4 MG/2 ML VIAL IV PRN (10:30)
[2024-11-21] MEDS ORDERED: NALOXONE HCL 0.4 MG/ML VIAL IV PRN (10:30)
[2024-11-21] MEDS ORDERED: hydrALAZINE HCL 20 MG/ML VL IV PRN (10:30)
[2024-11-21] MEDS: HYDROmorphone HCL 2 MG/ML VL/or syr IV PRN (11:31)
--- NOTE | 2024-11-21 11:44 | DVH ---
CLINICAL INDICATION: Postop TECHNIQUE: 3 radiographic views of the left knee were obtained. Comparison: None FINDINGS/IMPRESSION: There is no evidence of acute fracture or dislocation. Postsurgical changes from left knee arthroplasty.
[2024-11-21] MEDS: ACETAMINOPHEN 325 MG TAB PO SCH (13:38)
[2024-11-21 14:08] VITALS: BP 150/73; PULSE 57; RESP 16; TEMP 97.5; O2SAT 95
[2024-11-21 14:32] VITALS: BP 136/79; PULSE 63; RESP 16; TEMP 97.4; O2SAT 98
[2024-11-21] MEDS: ONDANSETRON HCL 4 MG/2 ML VIAL IV PRN (15:41)
[2024-11-21] MEDS: ceFAZolin 2 GM/D5W50ml 50 ML IV SCH (15:49)
[2024-11-21 16:30] VITALS: BP 136/79; PULSE 63; TEMP 97.4; O2SAT 98
[2024-11-21 21:00] VITALS: BP 119/75; PULSE 58; RESP 17; TEMP 97.4; O2SAT 96
[2024-11-22 01:00] VITALS: BP 103/59; PULSE 58; RESP 18; TEMP 97.7; O2SAT 97
[2024-11-22 05:00] VITALS: BP 105/64; PULSE 56; RESP 19; TEMP 98.1; O2SAT 97
[2024-11-22 06:48] LABS: Chloride 104 mmol/L (98-107); Hematocrit 32.5 % (36.0-46.0); Hemoglobin 11.1 g/dL (12.2-16.2); Mean Corpuscular Hemoglobin 30.1 pg (28.0-32.0); Mean Corpuscular Volume 88.6 fL (80.0-100.0); Nucleated Red Blood Cells % 0.1 %; Potassium 3.9 mmol/L (3.5-5.1); Sodium 140 mmol/L (136-145)
[2024-11-22 06:49] LABS: Anion Gap 8 (5-15); Carbon Dioxide 28 mmol/L (20-31)
[2024-11-22 06:50] LABS: Calcium 9.2 mg/dL (8.7-10.4)
[2024-11-22 06:54] LABS: BUN/Creatinine Ratio 21.2 (10.0-20.0); Blood Urea Nitrogen 14 mg/dL (9-23)
[2024-11-22 07:01] LABS: Glucose 118 mg/dL (74-106)
[2024-11-22 09:00] VITALS: BP 103/56; PULSE 60; RESP 16; TEMP 97.5; O2SAT 96
[2024-11-22] MEDS: PANTOPRAZOLE 40 MG TAB PO SCH (09:03)
--- NOTE | 2024-11-22 09:08 | DVHDS2 ---
Discharge Summary Date of Admission Nov 21, 2024 at 09:46 Date of Discharge: Nov 22, 2024 Labs/Diagnostic Data: Laboratory Results Test 11/22/24 05:41 11/17/24 10:00 White Blood Count 7.2 10^3/uL (4.4-10.8) Red Blood Count 3.67 10^6/uL (4.0-5.20) Hemoglobin 11.1 g/dL (12.2-16.2) Hematocrit 32.5 % (36.0-46.0) Mean Corpuscular Volume 88.6 fL (80.0-100.0) Mean Corpuscular Hemoglobin 30.1 pg (28.0-32.0) Mean Corpuscular Hemoglobin Concent 34.0 g/dL (32.0-36.0) Red Cell Distribution Width 15.0 % (11.8-14.3) Platelet Count 206 10^3/uL (140-450) Mean Platelet Volume 8.7 fL (6.9-10.8) Neutrophils (%) (Auto) 82.4 % (37.0-80.0) Lymphocytes (%) (Auto) 10.5 % (10.0-50.0) Monocytes (%) (Auto) 6.9 % (0.0-12.0) Eosinophils (%) (Auto) 0.1 % (0.0-7.0) Basophils (%) (Auto) 0.1 % (0.0-2.0) Neutrophils # (Auto) 5.9 10 ^3/uL (1.6-8.6) Lymphocytes # (Auto) 0.8 10 ^3/uL (0.4-5.4) Monocytes # (Auto) 0.5 10 ^3/uL (0-1.3) Eosinophils # (Auto) 0 10 ^3/uL (0-0.8) Basophils # (Auto) 0 10 ^3/uL (0-0.2) Nucleated Red Blood Cells 0.1 % Sodium Level 140 mmol/L (136-145) Potassium Level 3.9 mmol/L (3.5-5.1) Chloride Level 104 mmol/L (98-107) Carbon Dioxide Level 28 mmol/L (20-31) Anion Gap 8 (5-15) Blood Urea Nitrogen 14 mg/dL (9-23) Creatinine 0.66 mg/dL (0.550-1.02) Glomerular Filtration Rate Calc 104 mL/min (>90) BUN/Creatinine Ratio 21.2 (10.0-20.0) Serum Glucose 118 mg/dL (74-106) Calcium Level 9.2 mg/dL (8.7-10.4) Prothrombin Time 10.8 sec (9.3-11.8) Prothrombin Time INR 1.02 (0.9-1.15) Activated Partial Thromboplast Time 32.2 SEC (24.5-34.5) Urine Color Yellow (Yellow) Urine Clarity Clear (Clear) Urine pH 6.0 (5.0-9.0) Urine Specific [place] 1.026 (1.001-1.035) Urine Protein Negative (Negative) Urine Ketones Negative (Negative) Urine Blood Trace /uL (Negative) Urine Nitrite Negative (Negative) Urine Bilirubin Negative (Negative) Urine Urobilinogen 2 mg/dL (Negative) Urine Leukocyte Esterase Negative /uL (Negative) Urine RBC 4 /hpf (0 - 4) Urine Microscopic WBC 2 /HPF (0-5) Urine Squamous Epithelial Cells Few /hpf (<5) Urine Bacteria None seen /hpf (None Seen) Urine Mucus Few (None Seen) Urine Glucose Normal mg/dL (Normal) Total Bilirubin 1.6 mg/dL (0.2-1.0) Aspartate Amino Transferase (AST) 25 U/L (13-40) Alanine Aminotransferase (ALT) 16 U/L (7-40) Alkaline Phosphatase 108 U/L (46-116) Total Protein 6.4 g/dL (5.7-8.2) Albumin 4.3 g/dL (3.2-4.8) Other Laboratory Tests 11/22/24 05:41 Brief Hx & Hospital Course: Patient was brought to the hospital yesterday to undergo a left total knee arthroplasty, she tolerated the procedure well without complications and was kept overnight for postoperative observation. She has remained medically stable denying any overnight events but notes that she has only been able to take a few steps at bedside but has not yet gotten up walked with physical therapy today. Patient is otherwise feeling well denying any other complaints or concerns during my evaluation and advised the patient that if she is able to get up and walk with the help of physical therapy and her walker and she is able to get down the nurse's station and back to her room we may discharge her home. I advised the patient to follow up with our office in 10-14 days for her 1st postoperative evaluation. She understood and agreed. Condition at Discharge: Stable Final Diagnosis/Problems List Left knee degenerative arthritis Discharge Disposition: Home Discharge Instruct/Medications Diet: Regular Activity: See Comment Activity comment: Patient advised to remain weight-bearing as tolerated with the assistance of a walker Follow Up/Referral: Patient instructed to follow up with our office in 10-14 days for her 1st postoperative evaluation Medications: Rx sent via our outpatient EMR system Scheduled Acetazolamide (Acetazolamide), 500 MG PO Q4HR, (Reported) Cholecalciferol (Vitamin D3), 1 TAB PO DAILY, (Reported) Lisinopril (Lisinopril), 20 MG PO DAILY, (Reported) Metoprolol Tartrate (Lopressor), 12.5 MG PO BID Multiple Vitamins W/ Minerals (Multivitamin), 1 PO DAILY, (Reported) Omeprazole (Gnp Omeprazole), 40 MG PO DAILY, (Reported) Pravastatin Sodium (Pravachol Tablet), 20 MG PO DAILY, (Reported) Miscellaneous Medications Metoprolol Tartrate (Metoprolol Tartrate), 25 MG PO, (Reported) Discharge Statement: "Patient was advised to return to the ER or call 911 if any headaches, dizziness, shortness of breath, chest pain, abdominal pain, bleeding, fevers, or worsening of medical condition. Patient was counseled about treatment plan, medications, possible side effects, patientverbalized understanding. All questions were answered to the best of my ability. This discharge took greater then 30 minutes in planning, reviewing documentation, counseling the patient, and discussing with other team members." ASSESSMENT ASSESSMENT Assessment Left knee degenerative arthritis ALEXANDER PARDO Nov 22, 2024 09:08
--- NOTE | 2024-11-22 09:11 | DVHPN2 ---
Progress Note - Dictate Date Seen: Nov 22, 2024 Medical Necessity Reason Pt with a Central, PICC or Fol: No Subjective PATIENT WAS SITTING COMFORTABLY IN BED DURING MY EVALUATION REPORTS SOME POSTOPERATIVE KNEE PAIN THAT IS BEING WELL MANAGED WITH THE HELP OF PAIN MEDICATION. PATIENT NOTES THAT SHE WAS ABLE TO GET UP AND WALK AND TAKE A FEW STEPS AT BEDSIDE YESTERDAY AFTER SURGERY BUT NOTES THAT SHE HAS NOT YET GOTTEN UP TODAY. PATIENT IS OTHERWISE FEELING WELL DENYING ANY OTHER COMPLAINTS OR CONCERNS DURING MY EVALUATION. vital signs Vital Sign Date Time Temp Pulse Resp B/P (MAP) Pulse Ox O2 Delivery O2 Flow Rate FiO2 11/22/24 08:55 60 103/56 11/22/24 05:00 98.1 19 97 98.1 11/21/24 20:00 Room Air* 0 21 Total Intake and Output 11/21/24 11/21/24 11/22/24 15:00 23:00 07:00 Intake Total 100 ml 110 ml 400 ml Output Total 725 ml Balance 100 ml -615 ml 400 ml medications Current Medications Medications Dose Ordered Sig/Jurgen Route Start Time Stop Time Status Last Admin Dose Admin Acetazolamide 500 mg Q4HR PO 11/21/24 10:00 Hold Lisinopril 20 mg DAILY PO 11/21/24 10:00 Metoprolol Tartrate 25 mg DAILY PO 11/21/24 10:00 Pravastatin Sodium 20 mg DAILY PO 11/21/24 10:00 Patient Own Medication 40 mg DAILY PO 11/21/24 10:00 UNV Dextrose/Lactated Ringer's 1,000 ml @ 100 mls/hr Q10H IV 11/21/24 10:00 11/22/24 04:12 100 MLS/HR Acetaminophen 650 mg Q4HP PRN PO 11/21/24 10:00 Acetaminophen 650 mg Q6HR PO 11/21/24 12:00 11/22/24 00:01 650 MG Pregabalin 50 mg BID PO 11/21/24 10:00 11/21/24 20:55 50 MG Oxycodone HCl 5 mg Q4HP PRN PO 11/21/24 10:00 11/21/24 16:03 5 MG Oxycodone HCl 10 mg Q4HP PRN PO 11/21/24 10:00 11/22/24 04:11 10 MG Aspirin 81 mg BID PO 11/22/24 10:00 Pantoprazole Sodium 40 mg DAILY PO 11/22/24 10:00 Oxycodone HCl 10 mg ONCE PRN PO 11/21/24 10:30 Ondansetron HCl 4 mg Q4HPRN PRN IV 11/21/24 15:30 11/22/24 00:01 4 MG objective A&O x4 in no acute distress Knee range of motion grossly limited with pain on movement Sreedhar dressing clean, dry, intact, and maintaining suction No distal edema or calf tenderness to palpation Neurovascularly intact with cap refill less than 2 seconds laboratory and microbiology Laboratory Tests 11/22/24 05:41 Test 11/22/24 05:41 Range/Units Serum Glucose 118 H 74-106 mg/dL Assessment/Plan Patient to be discharged home once she has been able to get up and walk with the help of physical therapy and her walker and she has been able to get down to the nurse's station and back to her room. I instructed the patient to follow up with our office in 10-14 days for her 1st postoperative evaluation and to maintain her dressings clean, dry, intact, and maintaining suction to call our office if she has any questions or concerns. Rx sent via our outpatient EMR system. Patient understood and agreed. Plan discussed with: Patient, Spouse Capillary Refill: < 3 seconds ALEXANDER PARDO Nov 22, 2024 09:11
[2024-11-22 12:58] VITALS: BP 90/48; PULSE 73; RESP 16; TEMP 97.7; O2SAT 96
[2024-11-22 16:54] VITALS: BP 108/64; PULSE 62; RESP 16; TEMP 97.6; O2SAT 99
[2024-11-22 21:00] VITALS: BP 132/77; PULSE 61; RESP 18; TEMP 98.1; O2SAT 99
[2024-11-23 01:00] VITALS: BP 124/70; PULSE 68; RESP 18; TEMP 99.3; O2SAT 98
[2024-11-23 05:00] VITALS: BP 116/73; PULSE 64; RESP 18; TEMP 98.8; O2SAT 95
[2024-11-23 08:49] VITALS: BP 133/78; PULSE 71; RESP 17; TEMP 98.6; O2SAT 96
[2024-11-23 09:05] LABS: Chloride 105 mmol/L (98-107); Potassium 3.8 mmol/L (3.5-5.1); Sodium 143 mmol/L (136-145)
[2024-11-23 09:06] LABS: Anion Gap 7 (5-15); Calcium 9.0 mg/dL (8.7-10.4); Carbon Dioxide 31 mmol/L (20-31)
[2024-11-23 09:11] LABS: BUN/Creatinine Ratio 13.0 (10.0-20.0); Glucose 90 mg/dL (74-106)
[2024-11-23 09:12] LABS: Blood Urea Nitrogen 7 mg/dL (9-23)
[2024-11-23 09:16] LABS: Hematocrit 31.6 % (36.0-46.0); Hemoglobin 10.7 g/dL (12.2-16.2); Mean Corpuscular Hemoglobin 30.2 pg (28.0-32.0); Mean Corpuscular Volume 88.9 fL (80.0-100.0); Nucleated Red Blood Cells % 0.0 %
[2024-11-23 13:00] VITALS: BP 133/80; PULSE 62; RESP 18; TEMP 98.6; O2SAT 98
--- NOTE | 2024-11-23 17:54 | DVHPN2 ---
Progress Note - Dictate Date Seen: Nov 23, 2024 Medical Necessity Reason Pt with a Central, PICC or Fol: No Subjective PATIENT WAS LYING COMFORTABLY IN BED DURING MY EVALUATION REPORTS SOME CONTINUED POSTOPERATIVE KNEE PAIN THAT IS BEING WELL MANAGED WITH THE HELP OF PAIN MEDICATION. PATIENT NOTES THAT SHE WAS ABLE TO GET UP AND WALK WITH THE HELP OF PHYSICAL THERAPY AND WAS ABLE TO GET DOWN THE HUGGINS AND BACK TO HER BED ALBEIT WITH SOME PAIN. PATIENT IS OTHERWISE FEELING WELL DENYING ANY OTHER COMPLAINTS OR CONCERNS DURING MY EVALUATION. vital signs Vital Sign Date Time Temp Pulse Resp B/P (MAP) Pulse Ox O2 Delivery O2 Flow Rate FiO2 11/23/24 14:14 62 133/80 11/23/24 13:00 98.6 18 98 98.6 11/23/24 08:00 Room Air* 0 21 Total Intake and Output 11/22/24 11/22/24 11/23/24 15:00 23:00 07:00 Intake Total 1800 ml 1400 ml Balance 1800 ml 1400 ml medications Current Medications Medications Dose Ordered Sig/Jurgen Route Start Time Stop Time Status Last Admin Dose Admin Patient Own Medication 40 mg DAILY PO 11/21/24 10:00 UNV objective A&O x4 in no acute distress Knee range of motion grossly limited with pain on movement Sreedhar dressing clean, dry, intact, and maintaining suction No distal edema or calf tenderness to palpation Neurovascularly intact with cap refill less than 2 seconds laboratory and microbiology Laboratory Tests 11/23/24 08:15 Test 11/23/24 08:15 Range/Units Serum Glucose 90 74-106 mg/dL Assessment/Plan Patient to be discharged home once she has been able to get up and walk with the help of physical therapy and her walker and she has been able to get down to the nurse's station and back to her room. I instructed the patient to follow up with our office in 10-14 days for her 1st postoperative evaluation and to maintain her dressings clean, dry, intact, and maintaining suction to call our office if she has any questions or concerns. Rx sent via our outpatient EMR system. Patient understood and agreed. Plan discussed with: Patient Capillary Refill: < 3 seconds ALEXANDER PARDO Nov 23, 2024 17:54
== END 2024-11-23 16:34 | disposition home health service (06) | DRG 326 ==
LOC: SUR 06:08 → OVERFLOW 09:46 → EAST 14:15
PROVIDERS: ADMIT Orthopaedic Surgery; ATTEND Orthopaedic Surgery
PROC: 0SRD0J9 Replacement of Left Knee Joint with Synthetic Substitute, Cemented, Open Approach (ICD-10-PCS; principal; 2024-11-21 07:59)
DX: M17.12 Unilateral primary osteoarthritis, left knee (principal); I10 Essential (primary) hypertension; K21.9 Gastro-esophageal reflux disease without esophagitis; M21.162 Varus deformity, not elsewhere classified, left knee
CPT/HCPCS: 36415; 73562; 80048; 80053; 81001; 85025; 85610; 85730; 86850; 86900; 86901; 97110; 97116; 97163; G0378; J0131; J0169; J1100; J1885; J2405; J2704; J3490

== ENCOUNTER 2025-01-05 08:22 | Inpatient (IN) | payer MEDICAID ==
[~2025-01-05] VITALS: Ht 160 cm; Wt 75.5 kg
--- NOTE | 2025-01-05 08:33 | ECG ---
[facility] Test Date: 2025-01-05 Test Time: 08:31:55 Pat Name: CHRISTINA LEÓN Department: ED Room: 0249T Gender: F Harness Rigger: verito : [id number] Requested By: ELIZABETH VALDEZ Order Number: [id number] Reading MD: Abe Cortez Measurements Intervals Gaston Rate: 167 P: 0 SC: 0 QRS: 4 QRSD: 80 T: 39 QT: 307 QTc: 512 Interpretive Statements Atrial fibrillation with rapid V-rate Low voltage, precordial leads Electronically Signed On 01-08-2025 13:22:33 PDT by Abe Cortez Please click the below link to view image of tracing.
[2025-01-05 08:51] VITALS: PULSE 87; RESP 14; O2SAT 100
--- NOTE | 2025-01-05 08:53 | ED.PDOC ---
History of Present Illness HPI Comments 54-year-old female who is Turkmen-speaking, presents to the ER with prior medical history of hypertension, high lipids, SVT: Surgical history of cholecystectomy, hernia repair, gastric bypass and a chief complaint of palpitations. Patient reports on having palpitations and tenderness foreign unknown date but stated that she has a history of palpitations. Patient notes on taking aspirin. Patient came into the ER today due from the increasing pain of the palpitations. Denies chills, fever, N/V/D, SOB. No other associated symptoms, modifiers, recent injuries or sick contacts present at this time. Chief Complaint: Palpitations Time Seen by MD: 08:35 Primary Care Provider: GRAHAM Chaney Notes: Nurses Notes, Medications, Allergies Allergies: Coded Allergies: NO KNOWN ALLERGIES (Unverified , 01/23/19) Home Meds Active Scripts Metoprolol Tartrate (Lopressor) 25 Mg Tb, 12.5 MG PO BID for 30 Days, #30 TAB 2 Refills Prov:SASHA GALLAGHER MD 11/11/22 Reported Medications Omeprazole (Gnp Omeprazole) 20 Mg Tab, 40 MG PO DAILY, TAB 11/09/22 Metoprolol Tartrate (Metoprolol Tartrate) 25 Mg Tab, 25 MG PO for 30 Days, MG 11/09/22 Pravastatin Sodium (PRAVACHOL TABLET) 20 Mg Tb, 20 MG PO DAILY, TAB 08/13/19 Acetazolamide (Acetazolamide) 250 Mg Tab, 500 MG PO Q4HR for 30 Days, MG 0 Refills 08/13/19 Cholecalciferol (VITAMIN D3) 2,000 Unit Tab, 1 TAB PO DAILY, #30 TAB 5 Refills 08/13/19 Multiple Vitamins W/ Minerals (MULTIVITAMIN) Liq, 1 PO DAILY, LIQ 08/13/19 Lisinopril (Lisinopril) 20 Mg Tab, 20 MG PO DAILY for 30 Days, MG 08/13/19 Information Source: Patient Mode of Arrival: Ambulatory Severity: Moderate Timing: Came on: Gradually Duration: Since onset Prehospital treatment: None Past Medical History PAST MEDICAL HISTORY: High Lipids, HTN Past Medical History (Other): SVTs Surgical History: Cholecystectomy, Hernia Repair Surgical History (Other): Gastric bypass SCREEN REPAIRER CRUSHER History: Denies all SCREEN REPAIRER CRUSHER Hx Family History Family History: Reviewed,noncontributory to illness, Unknown Social History Smoker: Non-Smoker Alcohol: Denies ETOH Use Drugs: Denies Drug Use Lives In: Home Constitutional: denies: chills, diaphoresis, fatigue, fever, malaise, sweats, weakness, others EENTM: denies: blurred vision, double vision, ear bleeding, ear discharge, ear drainage, ear pain, ear ringing, eye pain, eye redness, hearing loss, mouth pain, mouth swelling, nasal discharge, nose bleeding, nose congestion, nose pain, photophobia, tearing, throat pain, throat swelling, voice changes, others Respiratory: denies: cough, hemoptysis, orthopnea, SOB at rest, shortness of breath, SOB with excertion, stridor, wheezing, others Cardiovascular: reports: palpitations; denies: chest pain, dizzy spells, diaphoresis, Dyspnea on exertion, edema, irregular heart beat, left arm pain, lightheadedness, PND, syncope, others Gastrointestinal: denies: abdomen distended, abdominal pain, blood streaked bowels, constipated, diarrhea, dysphagia, difficulty swallowing, hematemesis, melena, nausea, poor appetite, poor fluid intake, rectal bleeding, rectal pain, vomiting, others Genitourinary: denies: abnormal vagina bleeding, burning, dyspareunia, dysuria, flank pain, frequency, hematuria, incontinence, pain, , vagina discharge, urgency, others Neurological: denies: dizziness, fainting, headache, left sided numbness, left sided weakness, numbness, paresthesia, pre-existing deficit, right sided numbness, right sided weakness, seizure, speech problems, tingling, tremors, weakness, others Musculoskeletal: denies: back pain, gout, joint pain, joint swelling, muscle pain, muscle stiffness, neck pain, others Integumetry: denies: bruises, change in color, change in hair/nails, dryness, laceration, lesions, lumps, rash, wounds, others Allergic/Immunocompromised: denies: Difficulty Healing, Frequent Infections, Hives, Itching, others Hematologic/Lymphatic: denies: anemia, blood clots, easy bleeding, easy bruising, swollen glands, others Endocrine: denies: excessive hunger, excessive sweating, excessive thirst, excessive urination, flushing, intolerance to cold, intolerance to heat, unexplained weight gain, unexplained weight loss, others Psychiatric: denies: anxiety, bipolar disorder, depression, hopeless, panic disorder, schizophrenia, sleepless, suicidal, others All Other Systems: Reviewed and Negative Physical Exam General Appearance: No Apparent Distress, Normal HEENT: Normal ENT Inspection, Pharynx Normal, TMs Normal Neck: Full Range of Motion, Non-Tender, Normal, Normal Inspection Respiratory: Chest Non-Tender, Lungs Clear, No Accessory Muscle Use, No Re spiratory Distress, Normal Breath Sounds Cardiovascular: No Edema, No JVD, No Murmur, No Gallop, Normal Peripheral Pulses, Tachycardia Breast Exam: Deferred Gastrointestinal: No Organomegaly, Non Tender, No Pulsatile Mass, Normal Bowel Sounds, Soft Genitalia: Deferred Pelvic: Deferred Rectal: Deferred Extremities: No calf tenderness, Normal capillary refill, Normal inspection, Normal range of motion, Non-tender, No pedal edema Musculoskeletal : Apperance: Normal Neurologic: Alert, terrazzo laborer II-XII nml as Tested, No Motor Deficits, Normal Affect, Normal Mood, No Sensory Deficits Cerebellar Function: Normal Reflexes: Normal Skin: Dry, Normal Color, Warm Lymphatic: No Adenopathy Was a procedure done? Was a procedure done?: No EKG EKG : Pulse Rate (adult): 167 [place]: Normal Cardiac Rhythm: Afib Block: None Hypertrophy: None ST: Normal Differential Dx Considerations may include: ACS, CVA, viral syndrome, electrolyte abnormality X-Ray, Labs, Meds, VS Vital Signs Date Time Temp Pulse Resp B/P (MAP) Pulse Ox O2 Delivery O2 Flow Rate FiO2 01/05/25 11:31 67 01/05/25 11:08 144 17 93/57 (69) 96 01/05/25 10:08 143 116/80 01/05/25 09:26 120 01/05/25 08:53 167 01/05/25 08:31 167 01/05/25 08:24 98.7 104 16 138/84 100 98.7 Lab Test 01/05/25 10:31 01/05/25 09:01 01/05/25 08:36 Range/Units Troponin I High Sensitivity 12 8 </=34 ng/L Urine Color Light-yellow Yellow Urine Clarity Clear Clear Urine pH 7.0 5.0-9.0 Urine Specific [place] 1.003 1.001-1.035 Urine Protein Negative Negative Urine Ketones Negative Negative Urine Blood Negative Negative /uL Urine Nitrite Negative Negative Urine Bilirubin Negative Negative Urine Urobilinogen Normal Negative mg/dL Urine Leukocyte Esterase Negative Negative /uL Urine RBC None seen 0 - 4 /hpf Urine Microscopic WBC < 1 0-5 /HPF Urine Squamous Epithelial Cells Few <5 /hpf Urine Bacteria None seen None Seen /hpf Urine Glucose Normal Normal mg/dL White Blood Count 5.6 4.4-10.8 10^3/uL Red Blood Count 4.34 4.0-5.20 10^6/uL Hemoglobin 13.0 12.2-16.2 g/dL Hematocrit 38.4 36.0-46.0 % Mean Corpuscular Volume 88.4 80.0-100.0 fL Mean Corpuscular Hemoglobin 29.9 28.0-32.0 pg Mean Corpuscular Hemoglobin Concent 33.9 32.0-36.0 g/dL Red Cell Distribution Width 15.1 H 11.8-14.3 % Platelet Count 372 140-450 10^3/uL Mean Platelet Volume 8.8 6.9-10.8 fL Neutrophils (%) (Auto) 59.5 37.0-80.0 % Lymphocytes (%) (Auto) 29.4 10.0-50.0 % Monocytes (%) (Auto) 8.7 0.0-12.0 % Eosinophils (%) (Auto) 2.1 0.0-7.0 % Basophils (%) (Auto) 0.3 0.0-2.0 % Neutrophils # (Auto) 3.3 1.6-8.6 10 ^3/uL Lymphocytes # (Auto) 1.6 0.4-5.4 10 ^3/uL Monocytes # (Auto) 0.5 0-1.3 10 ^3/uL Eosinophils # (Auto) 0.1 0-0.8 10 ^3/uL Basophils # (Auto) 0 0-0.2 10 ^3/uL Nucleated Red Blood Cells 0.1 % Sodium Level 143 136-145 mmol/L Potassium Level 4.1 3.5-5.1 mmol/L Chloride Level 107 98-107 mmol/L Carbon Dioxide Level 23 20-31 mmol/L Anion Gap 13 5-15 Blood Urea Nitrogen 17 9-23 mg/dL Creatinine 0.65 0.550-1.02 mg/dL Glomerular Filtration Rate Calc 105 >90 mL/min BUN/Creatinine Ratio 26.2 H 10.0-20.0 Serum Glucose 99 74-106 mg/dL Calcium Level 9.3 8.7-10.4 mg/dL B-Type Natriuretic Peptide 135.33 0-100 pg/mL Current Medications Medications (Trade) Dose Ordered Sig/Jurgen Route Start Time Stop Time Status Last Admin Metoprolol Tartrate (Lopressor) 5 mg Q5M IV 01/05/25 08:45 01/05/25 11:14 DC 01/05/25 10:08 Time of 1ST Reevaluation: 09:05 Reevaluation 1ST: Unchanged Patient Education/Counseling: Diagnosis, Treatment, Prognosis Family Education/Counseling: No Family Present SEPSIS Sepsis Screen Date sepsis recognized/suspect: Jan 05, 2025 Time Sepsis recognized/suspect: 825 Recent Procedure: No On Antibiotic Therapy: No Respiratory Rate >20: No Heart Rate >90: Yes Temp<36 C (96.8 F) or >38.3 C: No SBP <90 or MAP <65 mmHG: No New Acute Mental Status Change: No Is the patient on CPAP, BIPAP,: No Physician Orders Troponin-I Hs (01/05/25 11:24) Electrocardigram (01/05/25 09:24) Electrocardigram (01/05/25 11:24) Chest Portable (01/05/25 08:39) Sodium Chloride 0.9% (01/05/25 11:15) Amiodarone 360mg/200ml Premix (Nexterone (01/05/25 11:30) Amiodarone 360mg/200ml Premix (Nexterone (01/05/25 17:30) Vital Signs Date Time Temp Pulse Resp B/P (MAP) Pulse Ox O2 Delivery O2 Flow Rate FiO2 01/05/25 11:31 67 01/05/25 11:08 144 17 93/57 (69) 96 01/05/25 10:08 143 116/80 01/05/25 09:26 120 01/05/25 08:53 167 01/05/25 08:31 167 01/05/25 08:24 98.7 104 16 138/84 100 98.7 Laboratory Tests Test 01/05/25 08:36 White Blood Count 5.6 10^3/uL (4.4-10.8) Medications Medications Dose Ordered Sig/Jurgen Route Start Time Stop Time Status Last Admin Dose Admin Metoprolol Tartrate 5 mg Q5M IV 01/05/25 08:45 01/05/25 11:14 DC 01/05/25 10:08 Departure 1 Departure Time of Disposition: 11:44 (Patient presents with AFib with RVR. Patient given fluids and started on amiodarone. Admit patient for further workup and expert consultation) Impression: Primary Impression: Atrial fibrillation with RVR Additional Impressions: Generalized weakness Shortness of breath Disposition: ADMITTED INPATIENT Admit to: Tele Condition: Guarded Critical Care Note Critical Care Time?: Yes Critical care comment: AFib with RVR Authorized and Performed by: Elizabeth Hunter MD Total critical care time: Approximately 39 minutes Due to a high probability of clinically significant, life threatening deterioration, the patient required my highest level of preparedness to intervene emergently and I personally spent this critical care time directly and personally managing the patient. This critical care time included obtaining a history; examining the patient; pulse oximetry; ordering and review of studies; arranging urgent treatment with development of a management plan; evaluation of patient's response to treatment; frequent reassessment; and, discussions with other providers. This critical care time was performed to assess and manage the high probability of imminent, life-threatening deterioration that could result in multi-organ failure. It was exclusive of separately billable procedures and treating other patients and teaching time. Please see my other sections and the rest of the note for further information on patient assessment and treatment. Stability Stability form required: No I personally scribed for ELIZABETH HUNTER MD ([email or web address]) on 01/05/25 at 08:53. El ectronically submitted by Tobi Moyer ([email or web address]). ELIZABETH HUNTER MD Jan 05, 2025 08:53
[2025-01-05 08:55] LABS: Hematocrit 38.4 % (36.0-46.0); Hemoglobin 13.0 g/dL (12.2-16.2); Mean Corpuscular Hemoglobin 29.9 pg (28.0-32.0); Mean Corpuscular Volume 88.4 fL (80.0-100.0); Nucleated Red Blood Cells % 0.1 %
[2025-01-05 09:03] LABS: Potassium 4.1 mmol/L (3.5-5.1); Sodium 143 mmol/L (136-145)
[2025-01-05 09:04] LABS: Anion Gap 13 (5-15); Calcium 9.3 mg/dL (8.7-10.4); Carbon Dioxide 23 mmol/L (20-31)
[2025-01-05 09:05] LABS: Chloride 107 mmol/L (98-107)
[2025-01-05 09:09] LABS: BUN/Creatinine Ratio 26.2 (10.0-20.0); Blood Urea Nitrogen 17 mg/dL (9-23); Glucose 99 mg/dL (74-106)
--- NOTE | 2025-01-05 09:24 | DVH ---
CHEST RADIOGRAPH Indication: palpitations Technique: Single frontal view of the chest was obtained COMPARISON: XR CHEST 2 VIEW on DOS: 07/17/24, XY CHEST XRAY 1 VIEW on DOS: 02/01/23, XY CHEST PORTABLE on DOS: 12/29/22, XY CHEST PORTABLE on DOS: 11/08/22, CHEST TWO VIEWS ROUTINE on DOS: 06/18/22 FINDINGS: Lines and Tubes: None Lungs: Clear Pleura: No effusion. No pneumothorax. Cardiomediastinal contours: Unremarkable Bones: Unremarkable IMPRESSION: No acute disease.
[2025-01-05 09:37] LABS: Urine Protein, UAD Negative (Negative)
[2025-01-05] MEDS: METOPROLOL TARTRATE 1MG/1ML-5ML VIAL IV SCH (10:08)
[2025-01-05] MEDS: SODIUM CHLORIDE 0.9% 1,000 ML IV ONE ×2 (11:40→11:45)
[2025-01-05] MEDS: AMIODARONE BOLUS KIT 100 ML IV ONE (12:05)
[2025-01-05] MEDS: AMIODARONE 360mg/200mL PREMIX 200 ML IV ONE (12:06)
[2025-01-05] MEDS: HYDROcodone-ACET 10/325MG TAB PO ONE (14:34)
[2025-01-05] MEDS ORDERED: FLUO10TA18 PO (14:52)
[2025-01-05] MEDS ORDERED: FLEC1TAB PO (14:52)
[2025-01-05] MEDS ORDERED: MAGN241.6 PO (14:52)
[2025-01-05] MEDS ORDERED: MORPHINE SULFATE INJ 2 MG/ml SYRG IV PRN (15:00)
[2025-01-05] MEDS ORDERED: ACETAMINOPHEN 500 MG TAB or CAP PO PRN (15:00)
[2025-01-05] MEDS ORDERED: HYDROcodone-ACET 5/325MG TAB PO PRN (15:00)
[2025-01-05] MEDS ORDERED: NITROGLYCERIN 0.4 MG SL TAB SL PRN (15:00)
[2025-01-05] MEDS ORDERED: ONDANSETRON HCL 4 MG/2 ML VIAL IV PRN (15:00)
[2025-01-05] MEDS ORDERED: DOCUSATE SOD 100 MG CAP PO PRN (15:00)
--- NOTE | 2025-01-05 15:01 | DVHHP2 ---
History of Present Illness Reason for Visit: Palpitations History of Present Illness Patient is a 54-year-old female presenting to the emergency room for the reports of palpitations, left arm paresthesia, dyspnea, as well as diaphoresis. Onset of symptoms began approximately 1 hour prior to coming in the hospital without any relief in her symptoms. Patient does report having a history of palpitations/atrial fibrillation with fast heart rate on three other occasions, last reported two years ago. At the time of assessment, the patient is now in sinus rhythm after receiving IV Lopressor. She reports having an echocardiogram approximately three months ago, with her last stress test being approximately tw o years ago. Her river pilot is reported to be Dr. Palm. Patient will be admitted to the hospital for further treatment. Cardiology consultation will be placed. Patient will be restarted on her home antiarrhythmic medications including flecainide and metoprolol tartrate. Patient is not on current anticoagulation, only receiving single antiplatelet therapy with aspirin. Cardiovascular: AFIB, HTN, hyperipidemia Past Surgical History: Hernia Repair, Total knee replacement Family History: None Smoke: # pack years ALCOHOL: none Drugs: None Lives: Alone Review of Systems Constitutional: No: Fever, Chills, Sweats, Weakness, Malaise, Other Eyes: No: Pain, Vision change, Conjunctivae inflammation, Eyelid inflammation, Other, Redness ENT: Ear pain, Ear discharge, Nose pain, Nose discharge, Nose congestion, Mouth pain, Mouth swelling, Throat pain, Throat swelling, Other Respiratory: Shortness of breath; No: Cough, Dry, SOB with excertion, Wheezing, Hemoptysis, Pleuritic Pain, Sputum, Wheezing, Other Cardiovascular: Palpitations, Orthopnea; No: Chest Pain, Paroxysmal Noc. Dyspnea, Edema, Lt Headedness, Other Gastrointestinal: No: Nausea, Vomiting, Abdominal Pain, Diarrhea, Constipation, Melena, Hematochezia, Other Genitourinary: No Dysuria, No Frequency, No Incontinence, No Hematuria, No Retention, No Other Musculoskeletal: No: other, neck pain, shoulder pain, arm pain, back pain, hand pain, leg pain, foot pain Skin: No: Rash, Lesions, Jaundice, Bruising, Other Neurological: No: Weakness, Numbness, Incoordination, Change in speech, Confusion, Seizures, Other Allergies: Coded Allergies: NO KNOWN ALLERGIES (Unverified , 01/23/19) Medications Current Medications Medications Dose Ordered Sig/Jurgen Route Start Time Stop Time Status Last Admin Dose Admin Amiodarone HCL/ Dextrose 200 ml @ 16.66 mls/ hr Q12H IV 01/05/25 17:30 Exam Vital Signs Vital Signs Date Time Temp Pulse Resp B/P (MAP) Pulse Ox O2 Delivery O2 Flow Rate FiO2 01/05/25 11:31 67 01/05/25 11:08 17 93/57 (69) 96 01/05/25 08:51 Room Air* 0 21 01/05/25 08:51 98.2 98.2 General Appearance: Oriented X3, Cooperative, mild distress HEENT: Atraumatic, PERRLA Respiratory: Clear to auscultation, Normal air movement Cardiovascular: Normal S1, Normal S2 Abdominal: Normal bowel sounds, Soft, No tenderness, No hepatospenomegaly Extremities: No clubbing, No cyanosis, No edema, Normal pulses, No tenderness/swelling Skin: No rashes, No breakdown, No significant lesion Neuro: Normal speech Psych/Mental Status: Mental status NL, Mood NL Labs/Xrays Labs Test 01/05/25 11:35 01/05/25 09:01 01/05/25 08:36 Range/Units Troponin I High Sensitivity 13 </=34 ng/L Urine Color Light-yellow Yellow Urine Clarity Clear Clear Urine pH 7.0 5.0-9.0 Urine Specific [place] 1.003 1.001-1.035 Urine Protein Negative Negative Urine Ketones Negative Negative Urine Blood Negative Negative /uL Urine Nitrite Negative Negative Urine Bilirubin Negative Negative Urine Urobilinogen Normal Negative mg/dL Urine Leukocyte Esterase Negative Negative /uL Urine RBC None seen 0 - 4 /hpf Urine Microscopic WBC < 1 0-5 /HPF Urine Squamous Epithelial Cells Few <5 /hpf Urine Bacteria None seen None Seen /hpf Urine Glucose Normal Normal mg/dL White Blood Count 5.6 4.4-10.8 10^3/uL Red Blood Count 4.34 4.0-5.20 10^6/uL Hemoglobin 13.0 12.2-16.2 g/dL Hematocrit 38.4 36.0-46.0 % Mean Corpuscular Volume 88.4 80.0-100.0 fL Mean Corpuscular Hemoglobin 29.9 28.0-32.0 pg Mean Corpuscular Hemoglobin Concent 33.9 32.0-36.0 g/dL Red Cell Distribution Width 15.1 H 11.8-14.3 % Platelet Count 372 140-450 10^3/uL Mean Platelet Volume 8.8 6.9-10.8 fL Neutrophils (%) (Auto) 59.5 37.0-80.0 % Lymphocytes (%) (Auto) 29.4 10.0-50.0 % Monocytes (%) (Auto) 8.7 0.0-12.0 % Eosinophils (%) (Auto) 2.1 0.0-7.0 % Basophils (%) (Auto) 0.3 0.0-2.0 % Neutrophils # (Auto) 3.3 1.6-8.6 10 ^3/uL Lymphocytes # (Auto) 1.6 0.4-5.4 10 ^3/uL Monocytes # (Auto) 0.5 0-1.3 10 ^3/uL Eosinophils # (Auto) 0.1 0-0.8 10 ^3/uL Basophils # (Auto) 0 0-0.2 10 ^3/uL Nucleated Red Blood Cells 0.1 % Sodium Level 143 136-145 mmol/L Potassium Level 4.1 3.5-5.1 mmol/L Chloride Level 107 98-107 mmol/L Carbon Dioxide Level 23 20-31 mmol/L Anion Gap 13 5-15 Blood Urea Nitrogen 17 9-23 mg/dL Creatinine 0.65 0.550-1.02 mg/dL Glomerular Filtration Rate Calc 105 >90 mL/min BUN/Creatinine Ratio 26.2 H 10.0-20.0 Serum Glucose 99 74-106 mg/dL Calcium Level 9.3 8.7-10.4 mg/dL B-Type Natriuretic Peptide 135.33 0-100 pg/mL SEPSIS Sepsis Screen Date sepsis recognized/suspect: Jan 05, 2025 Time Sepsis recognized/suspect: 08 Recent Procedure: No On Antibiotic Therapy: No Respiratory Rate >20: No Heart Rate >90: No Temp<36 C (96.8 F) or >38.3 C: No SBP <90 or MAP <65 mmHG: No New Acute Mental Status Change: No Is the patient on CPAP, BIPAP,: No Physician Orders Electrocardigram (01/05/25 09:24) Electrocardigram (01/05/25 11:24) Chest Portable (01/05/25 08:39) Admit (01/05/25 14:46) Nitroglycerin Sublingual (Ntrostat Subli (01/05/25 15:00) Morphine Sulfate Injection (01/05/25 15:00) Stat Ekg For Chest Pain (01/05/25 14:46) Notify Of Changes From Base (01/05/25 14:46) Supervisor Fiber Locking For 24 Hours (01/05/25 14:46) Emergency Dysrhythmia Protocol (01/05/25 14:46) Rhythm Strips Once Every Shift (01/05/25 14:46) Oxygen By Nasal Cannula (01/05/25 14:46) * Cardiology Consult (01/05/25 14:46) Cardiac Diet-2gna,Lofat,Lochol (01/05/25 Dinner) Metoprolol Tartrate Tablet (Lopressor Ta (01/05/25 22:00) Flecainide Tablet (Tambocor Tablet) (01/05/25 22:00) Fluoxetine Capsule (Prozac Capsule) (01/06/25 10:00) Pravastatin Sodium Tablet (Pravachol Tab (01/06/25 10:00) Vital Signs Date Time Temp Pulse Resp B/P (MAP) Pulse Ox O2 Delivery O2 Flow Rate FiO2 01/05/25 11:31 67 01/05/25 11:08 144 17 93/57 (69) 96 01/05/25 11:08 63 99/50 01/05/25 10:08 143 116/80 01/05/25 09:26 120 01/05/25 08:53 167 01/05/25 08:51 87 14 100 Room Air* 0 21 01/05/25 08:51 98.2 88 14 148/57 (87) 100 98.2 01/05/25 08:31 167 01/05/25 08:24 98.7 104 16 138/84 100 98.7 Laboratory Tests Test 01/05/25 08:36 White Blood Count 5.6 10^3/uL (4.4-10.8) Medications Medications Dose Ordered Sig/Jurgen Route Start Time Stop Time Status Last Admin Dose Admin Acetaminophen/ Hydrocodone Bitart 1 tab ONCE ONCE PO 01/05/25 14:30 01/05/25 14:34 DC 01/05/25 14:34 1 TAB Metoprolol Tartrate 5 mg Q5M IV 01/05/25 08:45 01/05/25 11:14 DC 01/05/25 10:08 5 MG Sodium Chloride 1,000 ml @ 1,000 mls/hr Q1H ONCE IV 01/05/25 11:15 01/05/25 12:14 DC 01/05/25 11:40 1,000 MLS/HR Sodium Chloride 1,000 ml @ 1,000 mls/hr Q1H ONCE IV 01/05/25 11:45 01/05/25 12:44 DC 01/05/25 11:45 1,000 MLS/HR Assessment/Plan Assessment/Plan Impression: -AFib with RVR -rule out ACS -obesity -dyslipidemia -primary hypertension -degenerative joint disease -depression Plan: -admit to telemetry floor -cardiology consultation -consider echocardiogram if one has been done within the past six months -serial troponin levels -continue flecainide and metoprolol tartrate -continue statins Further course of care per Cardiology recommendations Total time spent with patient discussing and formulating plan of care: 35 minutes. This medical document was created using an electronic medical record system with [employer] dictation system. Although this document has been carefully reviewed, there may still be some phonetic and typographical errors. These areas are purely typographical due to imperfections of the software programs, and do not reflect any compromise in the patient's medical care. Plan discussed with: Patient, Other (RN) My Orders Orders - TARA SALAZAR [employer]SEMBL[employer] Procedure Category Date Status Time Admit ADMIT 01/05/25 Transmitted 14:46 Nitroglycerin [facility] 01/05/25 Logged Sublingual (Ntrostat 15:00 Morphine Sulfate [facility] 01/05/25 Logged Injection 15:00 Stat Ekg For Chest [facility] 01/05/25 In Process Pain 14:46 Notify Of Changes [facility] 01/05/25 In Process From Base 14:46 Supervisor Fiber Locking For [facility] 01/05/25 In Process 24 Hours 14:46 Emergency Dysrhythmia [facility] 01/05/25 In Process Protocol 14:46 Rhythm Strips Once [facility] 01/05/25 In Process Every Shift 14:46 Oxygen By Nasal RT 01/05/25 Transmitted Cannula 14:46 * Cardiology Consult CONS 01/05/25 Transmitted 14:46 Cardiac DIET 01/05/25 Transmitted Diet-2gna,Lofat,Lochol Dinner Metoprolol Tartrate [facility] 01/05/25 Logged Tablet (Lopressor Ta 22:00 Flecainide Tablet [facility] 01/05/25 Logged (Tambocor Tablet) 22:00 Fluoxetine Capsule [facility] 01/06/25 Logged (Prozac Capsule) 10:00 Pravastatin Sodium [facility] 01/06/25 Logged Tablet (Pravachol Tab 10:00 Date of Service: Jan 05, 2025 Billing Provider: TARA SALAZAR NP Common Visit Codes: [id number] INP/OBS CARE (HIGH) TARA SALAZAR NP Jan 05, 2025 15:01
[2025-01-05] MEDS ORDERED: AMIODARONE 360mg/200mL PREMIX 200 ML IV SCH (17:30)
--- NOTE | 2025-01-05 17:49 | DVHINCON2 ---
Date of service: Jan 05, 2025 History of Present Illness HPI 54-year-old female presented with episode of palpitation accompanied with chest discomfort. She mentions that she woke up from sleep and was going to bathroom and the episode happened. Episode was accompanied by diaphoresis and shortness of breath and the patient came to the hospital. It is of note that the patient had the left knee surgery around 6 weeks before this presentation. Denies being on any anticoagulation. While being evaluated in emergency room, she was found to have tachyarrhythmia. Emergency room physicians and admitting team managed the patient with the assessment of atrial fibrillation with RVR. It is of note that the review of the EKG/telemetry reveals: SVT. There has been no documented/recognized atrial fibrillation. Patient does come to our office as outpatient. She has been diagnosed with SVT in the office. She has been kept on low-dose flecainide for its prevention. Cardiology is involved for cardiac aspects of care. She has been kept on 50 mg twice daily flecainide and 25 mg of metoprolol succinate (as outpatient). Home Meds Active Scripts Metoprolol Tartrate (Lopressor) 25 Mg Tb, 12.5 MG PO BID for 30 Days, #30 TAB 2 Refills Prov:SASHA GALLAGHER MD 11/11/22 Reported Medications Aspirin (YAMILETH ASPIRIN EC LOW DOSE) 81 Mg Tab, 1 TAB PO DAILY, #30 TAB 3 Refills 01/05/25 Flecainide Acetate (Flecainide Acetate) 50 Mg Tab, 1 TAB PO BID 01/05/25 Magnesium Oxide (mg Supplement (Magnesium-Oxide) 400 Mg Tab, 1 TAB PO BID 01/05/25 Fluoxetine Hcl (Fluoxetine Hcl) 10 Mg Tab, 1 CAP PO DAILY 01/05/25 Omeprazole (Gnp Omeprazole) 20 Mg Tab, 40 MG PO DAILY, TAB 11/09/22 Metoprolol Tartrate (Metoprolol Tartrate) 25 Mg Tab, 25 MG PO for 30 Days, MG 11/09/22 Pravastatin Sodium (PRAVACHOL TABLET) 20 Mg Tb, 20 MG PO DAILY, TAB 08/13/19 Acetazolamide (Acetazolamide) 250 Mg Tab, 500 MG PO Q4HR for 30 Days, MG 0 Refills 08/13/19 Cholecalciferol (VITAMIN D3) 2,000 Unit Tab, 1 TAB PO DAILY, #30 TAB 5 Refills 08/13/19 Multiple Vitamins W/ Minerals (MULTIVITAMIN) Liq, 1 PO DAILY, LIQ 08/13/19 Lisinopril (Lisinopril) 20 Mg Tab, 20 MG PO DAILY for 30 Days, MG 08/13/19 Past Medical History Others Past medical history includes hypertension, hyperlipidemia, old history of morbid obesity, status post gastric bypass, diabetes mellitus (which was resolved after bariatric surgery), osteoarthritis, depression, varicose veins, SVT (on flecainide as outpatient), status post cholecystectomy, hernia (hiatal/umbilical) surgery and status post bilateral knee arthroplasty. Patient Family History: Diabetes mellitus G8 FATHER, , Onset:Unknown Respiratory failure G8 MOTHER, Smoker: No Hx (Negative) Alocohol: None Lives with: With family Review of Systems Constitutional: No symptom reported Cardiovascular: Chest Pain, Palpitations Gastrointestinal: Nausea All Other Systems Fourteen point review of system was performed. Relevant findings as per above and as per HPI. Otherwise negative H&P Exam Vital Signs Vital Signs Date Time Temp Pulse Resp B/P (MAP) Pulse Ox O2 Delivery O2 Flow Rate FiO2 01/05/25 17:00 98.1 62 18 136/55 (82) 97 98.1 01/05/25 08:51 Room Air* 0 21 General Appeara: Well developed Head Exam: Normal inspection Neck Exam: Normal inspection Eye Exam: bilateral eye PERRL Pulmonary/Respiratory: Normal inspection Cardiovascular/Chest: Normal inspection, Regular rate Peripheral Pulses: 2+ carotid (R), 2+ carotid (L), 2+ femoral (R), 2+ femoral (L), 2+ dorsalis pedis (R), 2+ dorsalis pedis (L), 2+ Radial (R), 2+ Radial (L) Abdominal Exam: Normal bowel sounds, Soft Neuro/Mental St: Alert, Oriented Appearance: Appropriate appearance Eye contact/ Speech: Cooperative Labs/Xrays Labs Test 01/05/25 11:35 01/05/25 09:01 01/05/25 08:36 Range/Units Troponin I High Sensitivity 13 </=34 ng/L Urine Color Light-yellow Yellow Urine Clarity Clear Clear Urine pH 7.0 5.0-9.0 Urine Specific [place] 1.003 1.001-1.035 Urine Protein Negative Negative Urine Ketones Negative Negative Urine Blood Negative Negative /uL Urine Nitrite Negative Negative Urine Bilirubin Negative Negative Urine Urobilinogen Normal Negative mg/dL Urine Leukocyte Esterase Negative Negative /uL Urine RBC None seen 0 - 4 /hpf Urine Microscopic WBC < 1 0-5 /HPF Urine Squamous Epithelial Cells Few <5 /hpf Urine Bacteria None seen None Seen /hpf Urine Glucose Normal Normal mg/dL White Blood Count 5.6 4.4-10.8 10^3/uL Red Blood Count 4.34 4.0-5.20 10^6/uL Hemoglobin 13.0 12.2-16.2 g/dL Hematocrit 38.4 36.0-46.0 % Mean Corpuscular Volume 88.4 80.0-100.0 fL Mean Corpuscular Hemoglobin 29.9 28.0-32.0 pg Mean Corpuscular Hemoglobin Concent 33.9 32.0-36.0 g/dL Red Cell Distribution Width 15.1 H 11.8-14.3 % Platelet Count 372 140-450 10^3/uL Mean Platelet Volume 8.8 6.9-10.8 fL Neutrophils (%) (Auto) 59.5 37.0-80.0 % Lymphocytes (%) (Auto) 29.4 10.0-50.0 % Monocytes (%) (Auto) 8.7 0.0-12.0 % Eosinophils (%) (Auto) 2.1 0.0-7.0 % Basophils (%) (Auto) 0.3 0.0-2.0 % Neutrophils # (Auto) 3.3 1.6-8.6 10 ^3/uL Lymphocytes # (Auto) 1.6 0.4-5.4 10 ^3/uL Monocytes # (Auto) 0.5 0-1.3 10 ^3/uL Eosinophils # (Auto) 0.1 0-0.8 10 ^3/uL Basophils # (Auto) 0 0-0.2 10 ^3/uL Nucleated Red Blood Cells 0.1 % Sodium Level 143 136-145 mmol/L Potassium Level 4.1 3.5-5.1 mmol/L Chloride Level 107 98-107 mmol/L Carbon Dioxide Level 23 20-31 mmol/L Anion Gap 13 5-15 Blood Urea Nitrogen 17 9-23 mg/dL Creatinine 0.65 0.550-1.02 mg/dL Glomerular Filtration Rate Calc 105 >90 mL/min BUN/Creatinine Ratio 26.2 H 10.0-20.0 Serum Glucose 99 74-106 mg/dL Calcium Level 9.3 8.7-10.4 mg/dL B-Type Natriuretic Peptide 135.33 0-100 pg/mL Assessment/Plan Plan 54-year-old female presented with episode of palpitation accompanied with chest discomfort. She mentions that she woke up from sleep and was going to bathroom and the episode happened. Episode was accompanied by diaphoresis and shortness of breath and the patient came to the hospital. It is of note that the patient had the left knee surgery around 6 weeks before this presentation. Denies being on any anticoagulation. While being evaluated in emergency room, she was found to have tachyarrhythmia. Emergency room physicians and admitting team managed the patient with the assessment of atrial fibrillation with RVR. It is of note that the review of the EKG/telemetry reveals: SVT. There has been no documented/recognized atrial fibrillation. Patient does come to our office as outpatient. She has been diagnosed with SVT in the office. She has been kept on low-dose flecainide for its prevention. Cardiology is involved for cardiac aspects of care. She has been kept on 50 mg twice daily flecainide and 25 mg of metoprolol succinate (as outpatient). Not in acute distress. Mucosa is pink and wet. No JVD. No carotid bruit. No goiter. Lungs are clear to auscultation. Cardiac: Regular, no thrill/gallop. Abdomen is soft. Bowel sound is positive. There is no tenderness. There is no hepatomegaly/mass. There is no peripheral edema. Dorsalis pedis is 2+ bilatera l. No gross lateralized neurologic deficit was identified. Past medical history includes hypertension, hyperlipidemia, old history of morbid obesity, status post gastric bypass, diabetes mellitus (which was resolved after bariatric surgery), osteoarthritis, depression, varicose veins, SVT (on flecainide as outpatient), status post cholecystectomy, hernia (hiatal/umbilical) surgery and status post bilateral knee arthroplasty. Echocardiogram of October 2022 had reported ejection fraction of 55-60%, mild left atrial enlargement, mild mitral regurgitation, trace tricuspid regurgitation and no pulmonary hypertension. Echocardiogram of October 2024 (performed in the office) revealed preserved left ventricular systolic function with mild MR/TR Nuclear stress test of April 2023 (performed in the office) revealed normal perfusion and ejection fraction of 71% Hemoglobin: 13.0 Creatinine: 0.65 Potassium: 4.1 Troponin (high sensitive): 8 - BNP: 135.33 D-dimer: 1.73 TSH: 2.33 Magnesium: 1.9 Chest x-ray revealed: IMPRESSION: No acute disease. EKG revealed SVT transitioning into sinus rhythm. Another EKG revealed sinus rhythm with occasions of SVT Tele reveals sinus rhythm and occasions of SVT Patient is a 54-year-old female who presented with palpitation which was followed with chest discomfort. She is found to have SVT. Does have history of SVT from before. Has been kept on low-dose flecainide as outpatient. Increasing flecainide can be justified. Consideration for SVT ablation can be justified (as outpatient). Patient is also found to have increased D-dimer. It is of note that the patient had recent knee surgery in and was not on any anticoagulation. Could DVT/PE contributed to the clinical picture? Serial high sensitive troponin has been negative. Patient has had a negative nuclear stress test less than 2 years ago. Presently, presentation is not considered ACS. Repeat ischemic workup is not indicated at this point. Tachyarrhythmia SVT Hypertension Hyperlipidemia Abnormal D-dimer Recent left knee surgery Cardiac suggestion for management: Managed on telemetry Follow-up electrolytes and kidney function tests and correct abnormalities Keep potassium above 4 and magnesium above 2 Echocardiogram Increase flecainide to 100 mg p.o. b.i.d. Metoprolol tartrate: 50 mg p.o. b.i.d. Follow-up on urine toxicology Venous Doppler of lower extremities CT angiography of the lungs Consideration for SVT ablation can be justified (as outpatient). Further evaluation and management depends on the above and clinical course Thank you for consultation A total of 75 minutes was spent reviewing the patient record, examining the patient, making a diagnostic and therapeutic plan, discussing this plan with medical personnel, following up on diagnostic studies and following the patient for clinical stability excluding any and all procedures. At least 50% of this time was spent in direct, [id number] contact. Thank you for allowing me to participate in this patient's care. Further recommendations will depend on patient's clinical course. Please do not hesitate to contact me if you have any questions or concerns. This medical document was created using electronic medical record system with [employer] computerized dictation system. Although this document has been carefully reviewed, there may still be some phonetic and typographical errors. These areas are purely typographical due to the imperfection of the software programs, and do not reflect any compromise in the patient's medical care. Plan discussed with: Patient, Other (nurse) PHYLICIA DEL VALLE MD Jan 05, 2025 17:49
[2025-01-05 18:08] VITALS: BP 132/86; PULSE 98; RESP 20; TEMP 98.1; O2SAT 98
[2025-01-05 18:15] VITALS: BP 133/85; PULSE 59; RESP 19; TEMP 97.8; O2SAT 97
[2025-01-05] MEDS ORDERED: ASPI-378 PO (18:34)
[2025-01-05 20:00] VITALS: PULSE 65; RESP 19; O2SAT 98
[2025-01-05 21:01] VITALS: BP 130/76; PULSE 60; RESP 19; TEMP 97.8; O2SAT 98
[2025-01-05] MEDS: FLECAINIDE ACETATE 50 MG TAB PO SCH (22:08)
[2025-01-05] MEDS: ATORVASTATIN 20 MG TAB PO SCH (22:08)
[2025-01-05] MEDS: METOPROLOL TARTRATE 25 MG TAB PO SCH (22:08)
[2025-01-06] VITALS (9 sets, daily range): BP systolic 123–147; BP diastolic 73–88; PULSE 59–69; RESP 16–20; TEMP 97.9–98.2; O2SAT 97–99
[2025-01-06] MEDS ORDERED: IOHEXOL 350 MG/ML 100ML IJ ONE (13:00)
--- NOTE | 2025-01-06 13:31 | DVHPN2 ---
Progress Note - Dictate Date Seen: Jan 06, 2025 Medical Necessity Reason Pt with a Central, PICC or Fol: No vital signs Vital Sign Date Time Temp Pulse Resp B/P (MAP) Pulse Ox O2 Delivery O2 Flow Rate FiO2 01/06/25 10:33 65 143/82 01/06/25 09:34 98.2 16 97 98.2 01/06/25 08:05 Room Air* 0 21 Total Intake and Output 01/05/25 01/05/25 01/06/25 15:00 23:00 07:00 Intake Total 2000 ml 240 ml Balance 2000 ml 240 ml medications Current Medications Medications Dose Ordered Sig/Jurgen Route Start Time Stop Time Status Last Admin Dose Admin Nitroglycerin 0.4 mg Q5MINP PRN SL 01/05/25 15:00 Morphine Sulfate 2 mg Q30M PRN IV 01/05/25 15:00 Fluoxetine HCl 10 mg DAILY PO 01/06/25 10:00 01/06/25 10:32 10 MG Atorvastatin Calcium 20 mg HS PO 01/05/25 22:00 01/05/25 22:08 20 MG Morphine Sulfate 1 mg Q4HPRN PRN IV 01/05/25 15:00 Acetaminophen/ Hydrocodone Bitart 1 tab Q6HPRN PRN PO 01/05/25 15:00 Acetaminophen 500 mg Q8HP PRN PO 01/05/25 15:00 Ondansetron HCl 4 mg Q6HP PRN IV 01/05/25 15:00 Docusate Sodium 100 mg BID PRN PO 01/05/25 15:00 Aspirin 81 mg DAILY PO 01/06/25 10:00 01/06/25 10:31 81 MG Flecainide Acetate 100 mg BID PO 01/06/25 22:00 Metoprolol Tartrate 50 mg BID PO 01/06/25 22:00 laboratory and microbiology Laboratory Tests 01/05/25 08:36 Test 01/05/25 08:36 Range/Units Serum Glucose 99 74-106 mg/dL Assessment/Plan 54-year-old female presented with episode of palpitation accompanied with chest discomfort. She mentions that she woke up from sleep and was going to bathroom and the episode happened. Episode was accompanied by diaphoresis and shortness of breath and the patient came to the hospital. It is of note that the patient had the left knee surgery around 6 weeks before this presentation. Denies being on any anticoagulation. While being evaluated in emergency room, she was found to have tachyarrhythmia. Emergency room physicians and admitting team managed the patient with the assessment of atrial fibrillation with RVR. It is of note that the review of the EKG/telemetry reveals: SVT. There has been no documented/recognized atrial fibrillation. Patient does come to our office as outpatient. She has been diagnosed with SVT in the office. She has been kept on low-dose flecainide for its prevention. Cardiology is involved for cardiac aspects of care. She has been kept on 50 mg twice daily flecainide and 25 mg of metoprolol succinate (as outpatient). Not in acute distress. Mucosa is pink and wet. No JVD. No carotid bruit. No goiter. Lungs are clear to auscultation. Cardiac: Regular, no thrill/gallop. Abdomen is soft. Bowel sound is positive. There is no tenderness. There is no hepatomegaly/mass. There is no peripheral edema. Dorsalis pedis is 2+ bilateral. No gross lateralized neurologic deficit was identified. Past medical history includes hypertension, hyperlipidemia, old history of morbid obesity, status post gastric bypass, diabetes mellitus (which was resolved after bariatric surgery), osteoarthritis, depression, varicose veins, SVT (on flecainide as outpatient), status post cholecystectomy, hernia (hiatal/umbilical) surgery and status post bilateral knee arthroplasty. Echocardiogram of October 2022 had reported ejection fraction of 55-60%, mild left atrial enlargement, mild mitral regurgitation, trace tricuspid regurgitation and no pulmonary hypertension. Echocardiogram of October 2024 (performed in the office) revealed preserved left ventricular systolic function with mild MR/TR Nuclear stress test of April 2023 (performed in the office) revealed normal perfusion and ejection fraction of 71% Hemoglobin: 13.0 Creatinine: 0.65 Potassium: 4.1 Troponin (high sensitive): 8 - 12 - 13 BNP: 135.33 D-dimer: 1.73 TSH: 2.33 Magnesium: 1.9 Chest x-ray revealed: IMPRESSION: No acute disease. EKG revealed SVT transitioning into sinus rhythm. Another EKG revealed sinus rhythm with occasions of SVT Tele reveals sinus rhythm and occasions of SVT Patient is a 54-year-old female who presented with palpitation which was followed with chest discomfort. She is found to have SVT. Does have history of SVT from before. Has been kept on low-dose flecainide as outpatient. Increasing flecainide can be justified. Consideration for SVT ablation can be justified (as outpatient). Patient is also found to have increased D-dimer. It is of note that the patient had recent knee surgery in and was not on any anticoagulation. Could DVT/PE contributed to the clinical picture? Serial high sensitive troponin has been negative. Patient has had a negative nuclear stress test less than 2 years ago. Presently, presentation is not considered ACS. Repeat ischemic workup is not indicated at this point. Tachyarrhythmia SVT Hypertension Hyperlipidemia Abnormal D-dimer Recent left knee surgery Cardiac suggestion for management: Managed on telemetry Follow-up electrolytes and kidney function tests and correct abnormalities Keep potassium above 4 and magnesium above 2 Echocardiogram Increase flecainide to 100 mg p.o. b.i.d. Metoprolol tartrate: 50 mg p.o. b.i.d. Follow-up on urine toxicology Venous Doppler of lower extremities CT angiography of the lungs Consideration for SVT ablation can be justified (as outpatient). Further evaluation and management depends on the above and clinical course Thank you for consultation A total of 75 minutes was spent reviewing the patient record, examining the patient, making a diagnostic and therapeutic plan, discussing this plan with medical personnel, following up on diagnostic studies and following the patient for clinical stability excluding any and all procedures. At least 50% of this time was spent in direct, [id number] contact. Thank you for allowing me to participate in this patient's care. Further recommendations will depend on patient's clinical course. Please do not hesitate to contact me if you have any questions or concerns. This medical document was created using electronic medical record system with [employer] dictation system. Although this document has been carefully reviewed, there may still be some phonetic and typographical errors. These areas are purely typographical due to the imperfection of the software programs, and do not reflect any compromise in the patient's medical care. Plan discussed with: Patient, Other (nurse) Capillary Refill: < 3 seconds PHYLICIA DEL VALLE MD Jan 06, 2025 13:31
--- NOTE | 2025-01-06 14:14 | DVH ---
Bilateral lower extremity venous duplex Clinical History: rule out DVT/edema Comparison: CV VENOUS DOPPLER LOW EXT RT on DOS: 06/10/23, US BILAT LOWER DVT on DOS: 11/09/22 Findings: Duplex Doppler evaluation of the deep venous systems of both lower extremities from the common femora l veins to the popliteal veins including color Doppler and spectral/pulsed waveform analysis was perf ormed. RIGHT SIDE: The common femoral vein demonstrates appropriate compressibility and waveform variability. There is compressibility/patency of the great saphenous vein at the proximal thigh. The femoral vein demonstrates appropriate compressibility and waveform variability. The deep femoral vein demonstrates appropriate compressibility and waveform variability. The popliteal vein demonstrates appropriate compressibility and waveform variability. There is normal compressibility at the tibioperoneal trunk. LEFT SIDE: The common femoral vein demonstrates appropriate compressibility and waveform variability. There is compressibility/patency of the great saphenous vein at the proximal thigh. The femoral vein demonstrates appropriate compressibility and waveform variability. The deep femoral vein demonstrates appropriate compressibility and waveform variability. The popliteal vein demonstrates appropriate compressibility and waveform variability. There is normal compressibility at the tibioperoneal trunk. Bilateral inguinal hernias 3.4cm on right side and 5.2 cm left side. IMPRESSION: No right or left femoropopliteal venous thrombosis. If clinical concern/symptoms persist or worsen, short-interval follow-up study is suggested. END IMPRESSION:
[2025-01-06 14:44] LABS: Hematocrit 36.2 % (36.0-46.0); Hemoglobin 11.8 g/dL (12.2-16.2); Mean Corpuscular Hemoglobin 29.8 pg (28.0-32.0); Mean Corpuscular Volume 91.1 fL (80.0-100.0); Nucleated Red Blood Cells % 0.1 %
--- NOTE | 2025-01-06 14:50 | DVH ---
EXAM: CT CT ANGIO CHEST CONTRAST History: Rule out Pulmonary Embolisom Comparison Study: None TECHNIQUE: A digital hris analyst image was obtained. During the uneventful, intravenous administration of c ontrast material, multislice data acquisition was obtained through the chest. 3-D postprocessing is performed by technologist including MIP imaging Radiation Dose : CTDI vol 14.97 mGy, DLP 431.07 mGy*cm. Findings: Lungs: The lungs are clear. Pleura: Unremarkable Heart/Great vessels: No cardiomegaly or pericardial effusion. No pulmonary embolism or aneurysm. Mediastinum: Unremarkable Soft tissues/Bones: Moderate multilevel degenerative changes of the thoracic spine Postsurgical changes of the stomach. Impression: 1. No evidence of a pulmonary embolism or aneurysm.
[2025-01-06 14:55] LABS: Alanine Aminotransferase 19 U/L (7-40); Albumin 3.8 g/dL (3.2-4.8); Alkaline Phosphatase 103 U/L (46-116); Anion Gap 10 (5-15); BUN/Creatinine Ratio 22.4 (10.0-20.0); Bilirubin, Total 0.9 mg/dL (0.2-1.0); Blood Urea Nitrogen 13 mg/dL (9-23); Calcium 8.9 mg/dL (8.7-10.4); Carbon Dioxide 26 mmol/L (20-31); Chloride 103 mmol/L (98-107); Glucose 77 mg/dL (74-106); Potassium 4.2 mmol/L (3.5-5.1); Sodium 139 mmol/L (136-145); Total Protein 6.2 g/dL (5.7-8.2)
--- NOTE | 2025-01-06 17:11 | DVHPN2 ---
Progress Note Date Seen: Jan 06, 2025 Medical Necessity Reason Pt with a Central, PICC or Fol: No Subjective Patient reports: No new complaints (Resting in bed. No apparent distress. No fever chills) Objective vital signs Vital Sign Date Time Temp Pulse Resp B/P (MAP) Pulse Ox O2 Delivery O2 Flow Rate FiO2 01/06/25 14:15 98.1 66 16 123/73 (90) 97 98.1 01/06/25 08:05 Room Air* 0 21 Total Intake and Output 01/05/25 01/05/25 01/06/25 15:00 23:00 07:00 Intake Total 2000 ml 240 ml Balance 2000 ml 240 ml medications Current Medications Medications Dose Ordered Sig/Jurgen Route Start Time Stop Time Status Last Admin Dose Admin Nitroglycerin 0.4 mg Q5MINP PRN SL 01/05/25 15:00 Morphine Sulfate 2 mg Q30M PRN IV 01/05/25 15:00 Fluoxetine HCl 10 mg DAILY PO 01/06/25 10:00 01/06/25 10:32 10 MG Atorvastatin Calcium 20 mg HS PO 01/05/25 22:00 01/05/25 22:08 20 MG Morphine Sulfate 1 mg Q4HPRN PRN IV 01/05/25 15:00 Acetaminophen/ Hydrocodone Bitart 1 tab Q6HPRN PRN PO 01/05/25 15:00 Acetaminophen 500 mg Q8HP PRN PO 01/05/25 15:00 Ondansetron HCl 4 mg Q6HP PRN IV 01/05/25 15:00 Docusate Sodium 100 mg BID PRN PO 01/05/25 15:00 Aspirin 81 mg DAILY PO 01/06/25 10:00 01/06/25 10:31 81 MG Flecainide Acetate 100 mg BID PO 01/06/25 22:00 Metoprolol Tartrate 50 mg BID PO 01/06/25 22:00 Examination: GENERAL:Normal, HEENT:Normal, NECK:Normal, CVS:Abnormal (Irregularly irregular), ABDOMEN:Normal, MSK:Normal, SKIN:Normal, NEURO:Normal laboratory and microbiology Laboratory Tests 01/06/25 13:52 Test 01/06/25 13:52 Range/Units Serum Glucose 77 74-106 mg/dL Problem List/Assessment/Plan Problem List/Assessment/Plan -AFib with RVR -rule out ACS -obesity -dyslipidemia -primary hypertension -degenerative joint disease -depression Plan: -admit to telemetry floor -cardiology recs appreciated. flecainide increase to 100 mg p.o. b.i.d. Metoprolol tartrate: 50 mg p.o. b.i.d. -continue statins -urine tox Previous study bilateral lower extremity CT angio chest Consider DVT ablation outpatient Plan discussed with: Patient My Orders My Orders Orders - TRISTON BAUTISTA MD Procedure Category Date Status Time Complete Blood Count LAB 01/07/25 Verified 05:00 Complete Blood Count LAB 01/08/25 Verified 05:00 Complete Blood Count LAB 01/09/25 Verified 05:00 Complete Blood Count LAB 01/10/25 Verified 05:00 Complete Blood Count LAB 01/11/25 Verified 05:00 Comprehensive LAB 01/07/25 Verified Metabolic Panel 05:00 Comprehensive LAB 01/08/25 Verified Metabolic Panel 05:00 Comprehensive LAB 01/09/25 Verified Metabolic Panel 05:00 Comprehensive LAB 01/10/25 Verified Metabolic Panel 05:00 Comprehensive LAB 01/11/25 Verified Metabolic Panel 05:00 Sepsis reassessment post fluid Capillary Refill: < 3 seconds Date of Service: Jan 06, 2025 Billing Provider: TRISTON BAUTISTA MD Common Visit Codes: [id number] INP/OBS CARE(HIGH) TRISTON BAUTISTA MD Jan 06, 2025 17:11
--- NOTE | 2025-01-06 19:25 | ECG ---
[facility] Test Date: 2025-01-05 Test Time: 09:26:28 Pat Name: CHRISTINA LEÓN Department: Room: 0249T A Gender: F Agricultural Researcher: NARINDER : 1970 Requested By: ELIZABETH VALDEZ Order Number: [id number] Reading MD: Abe Cortez Measurements Intervals Cyrus Rate: 120 P: 16 TN: 139 QRS: 9 QRSD: 86 T: 28 QT: 327 QTc: 462 Interpretive Statements Sinus tachycardia with irregular rate Low voltage, precordial leads Electronically Signed On 01-08-2025 13:22:42 PDT by Abe Cortez Please click the below link to view image of tracing.
[2025-01-06] MEDS: FLECAINIDE ACETATE 50 MG TAB PO SCH (22:11)
[2025-01-06] MEDS: METOPROLOL TARTRATE 25 MG TAB PO SCH (22:12)
[2025-01-06] MEDS: MORPHINE SULFATE INJ 2 MG/ml SYRG IV PRN (22:13)
[2025-01-07] VITALS (7 sets, daily range): BP systolic 123–129; BP diastolic 54–75; PULSE 56–70; RESP 16–18; TEMP 36.7; O2SAT 97–100
[2025-01-07 06:14] LABS: Hematocrit 35.7 % (36.0-46.0); Hemoglobin 12.1 g/dL (12.2-16.2); Mean Corpuscular Hemoglobin 29.8 pg (28.0-32.0); Mean Corpuscular Volume 87.7 fL (80.0-100.0); Nucleated Red Blood Cells % 0.2 %
[2025-01-07 06:30] LABS: Alanine Aminotransferase 15 U/L (7-40); Albumin 3.9 g/dL (3.2-4.8); Alkaline Phosphatase 99 U/L (46-116); Anion Gap 9 (5-15); BUN/Creatinine Ratio 15.4 (10.0-20.0); Blood Urea Nitrogen 10 mg/dL (9-23); Calcium 9.0 mg/dL (8.7-10.4); Carbon Dioxide 27 mmol/L (20-31); Chloride 104 mmol/L (98-107); Glucose 81 mg/dL (74-106); Potassium 3.9 mmol/L (3.5-5.1); Sodium 140 mmol/L (136-145); Total Protein 6.3 g/dL (5.7-8.2)
[2025-01-07 06:31] LABS: Bilirubin, Total 0.6 mg/dL (0.2-1.0)
--- NOTE | 2025-01-07 08:49 | DVHSR ---
APPROVED REPORT EXAM: Two-dimensional and M-mode echocardiogram with Doppler and color Doppler. Blood Pressure: 133/88 mmHg INDICATION Tachyarrhythmia RISK FACTORS Height: 5'3", Weight: 171 DIMENSIONS LVDd4.9 (3.8-5.7cm)LA (2D)4.3 (1.9-4.0cm)Aortic Root3.4 (2.0-3.7cm) LVDs3.6 (2.5-4.0cm)LA (MM) (1.9-4.0cm)Aortic Cusp Exc1.7 (1.5-2.0cm) EF (%) 55.0 (55-70%)Rt. Atrium3.8 (1.9-4.0cm)Asc. Aorta cm IVSd0.9 (0.7-1.1cm)RV (D) (1.8-2.4cm) PWd1.1 (0.7-1.1cm) Mitral Valve MitralMitral Stenosis E wave0.80m/sMV Mean GR.mmHg A wave0.58m/sMV Peak GR.mmHg E/A ratio1.42D MVAcm2 DECEL [id number] 1/2 [place] Aortic Valve Aortic ValveAortic Stenosis V10.80m/Nabil Mean GR.2mmHg V20.95m/Nabil Peak GR.4mmHg LVOT Diameter1.9 (1.8-2.4cm)Doppler AVA2.39cm2 Pulmonic Valve V21.06m/s Other Information Technically limited study due to body habitus. Conclusion Left ventricle: Left ventricle was normal-sized with normal systolic function. LVEF was around 55%. There was no wall motion abnormality. Diastolic function of left ventricle was considered normal. Right ventricle was normal-sized with normal systolic function. Both atria were normal-sized. Aortic valve: Aortic valve was trileaflet. There was no aortic stenosis/insufficiency. There was t race mitral regurgitation. There was no tricuspid regurgitation. There was no pulmonary valve insuf ficiency. IVC was normal-sized with normal respiratory variation. As there was no good tricuspid regurgitation jet, right ventricular systolic pressure could not be estimated. There was no echocardiographic samantha dence for pulmonary hypertension. There was no pericardial effusion.
--- NOTE | 2025-01-07 08:54 | DVHPN2 ---
Progress Note - Dictate Date Seen: Jan 07, 2025 Medical Necessity Reason Pt with a Central, PICC or Fol: No vital signs Vital Sign Date Time Temp Pulse Resp B/P (MAP) Pulse Ox O2 Delivery O2 Flow Rate FiO2 01/07/25 05:00 97.9 60 18 125/67 (86) 97 97.9 01/06/25 20:00 Room Air* 0 21 Total Intake and Output 01/06/25 01/06/25 01/07/25 15:00 23:00 07:00 Intake Total 400 ml 600 ml Balance 400 ml 600 ml medications Current Medications Medications Dose Ordered Sig/Jurgen Route Start Time Stop Time Status Last Admin Dose Admin Nitroglycerin 0.4 mg Q5MINP PRN SL 01/05/25 15:00 Morphine Sulfate 2 mg Q30M PRN IV 01/05/25 15:00 Fluoxetine HCl 10 mg DAILY PO 01/06/25 10:00 01/06/25 10:32 10 MG Atorvastatin Calcium 20 mg HS PO 01/05/25 22:00 01/06/25 22:11 20 MG Morphine Sulfate 1 mg Q4HPRN PRN IV 01/05/25 15:00 01/06/25 22:13 1 MG Acetaminophen/ Hydrocodone Bitart 1 tab Q6HPRN PRN PO 01/05/25 15:00 Acetaminophen 500 mg Q8HP PRN PO 01/05/25 15:00 Ondansetron HCl 4 mg Q6HP PRN IV 01/05/25 15:00 Docusate Sodium 100 mg BID PRN PO 01/05/25 15:00 Aspirin 81 mg DAILY PO 01/06/25 10:00 01/06/25 10:31 81 MG Flecainide Acetate 100 mg BID PO 01/06/25 22:00 01/06/25 22:11 100 MG Metoprolol Tartrate 50 mg BID PO 01/06/25 22:00 01/06/25 22:12 50 MG laboratory and microbiology Laboratory Tests 01/07/25 05:50 Test 01/07/25 05:50 Range/Units Serum Glucose 81 74-106 mg/dL Assessment/Plan 54-year-old female presented with episode of palpitation accompanied with chest discomfort. She mentions that she woke up from sleep and was going to bathroom and the episode happened. Episode was accompanied by diaphoresis and shortness of breath and the patient came to the hospital. It is of note that the patient had the left knee surgery around 6 weeks before this presentation. Denies being on any anticoagulation. While being evaluated in emergency room, she was found to have tachyarrhythmia. Emergency room physicians and admitting team managed the patient with the assessment of atrial fibrillation with RVR. It is of note that the review of the EKG/telemetry reveals: SVT. There has been no documented/recognized atrial fibrillation. Patient does come to our office as outpatient. She has been diagnosed with SVT in the office. She has been kept on low-dose flecainide for its prevention. Cardiology is involved for cardiac aspects of care. She has been kept on 50 mg twice daily flecainide and 25 mg of metoprolol succinate (as outpatient). Not in acute distress. Mucosa is pink and wet. No JVD. No carotid bruit. No goiter. Lungs are clear to auscultation. Cardiac: Regular, no thrill/gallop. Abdomen is soft. Bowel sound is positive. There is no tenderness. There is no hepatomegaly/mass. There is no peripheral edema. Dorsalis pedis is 2+ bilateral. No gross lateralized neurologic deficit was identified. Past medical history includes hypertension, hyperlipidemia, old history of morbid obesity, status post gastric bypass, diabetes mellitus (which was resolved after bariatric surgery), osteoarthritis, depression, varicose veins, SVT (on flecainide as outpatient), status post cholecystectomy, hernia (hiatal/umbilical) surgery and status post bilateral knee arthroplasty. Echocardiogram of October 2022 had reported ejection fraction of 55-60%, mild left atrial enlargement, mild mitral regurgitation, trace tricuspid regurgitation and no pulmonary hypertension. Echocardiogram of October 2024 (performed in the office) revealed preserved left ventricular systolic function with mild MR/TR Nuclear stress test of April 2023 (performed in the office) revealed normal perfusion and ejection fraction of 71% Hemoglobin: 13.0 - 11.8 - 12.1 Creatinine: 0.65 - 0.58 - 0.65 Potassium: 4.1 - 4.2 - 3.9 Troponin (high sensitive): 8 - 12 - 13 BNP: 135.33 D-dimer: 1.73 TSH: 2.33 Magnesium: 1.9 Chest x-ray revealed: IMPRESSION: No acute disease. Venous duplex of lower ext revealed: IMPRESSION: No right or left femoropopliteal venous thrombosis. If clinical concern/symptoms persist or worsen, short-interval follow-up study is suggested. CTA of lungs: Impression: 1. No evidence of a pulmonary embolism or aneurysm. EKG revealed SVT transitioning into sinus rhythm. Another EKG revealed sinus rhythm with occasions of SVT Tele reveals sinus rhythm and occasions of SVT Echocardiogram revealed: Left ventricle: Left ventricle was normal-sized with normal systolic function. LVEF was around 55%. There was no wall motion abnormality. Diastolic function of left ventricle was considered normal. Right ventricle was normal-sized with normal systolic function. Both atria were normal-sized. Aortic valve: Aortic valve was trileaflet. There was no aortic stenosis/insufficiency. There was trace mitral regurgitation. There was no tricuspid regurgitation. There was no pulmonary valve insufficiency. IVC was normal-sized with normal respiratory variation. As there was no good tricuspid regurgitation jet, right ventricular systolic pressure could not be estimated. There was no echocardiographic evidence for pulmonary hypertension. There was no pericardial effusion. Patient is a 54-year-old female who presented with palpitation which was followed with chest discomfort. She is found to have SVT. Does have history of SVT from before. Has been kept on low-dose flecainide as outpatient. Increasing flecainide can be justified. Consideration for SVT ablation can be justified (as outpatient). Patient is also found to have increased D-dimer. It is of note that the patient had recent knee surgery in and was not on any anticoagulation. Could DVT/PE contributed to the clinical picture? Serial high sensitive troponin has been negative. Patient has had a negative nuclear stress test less than 2 years ago. Presently, presentation is not considered ACS. Repeat ischemic workup is not indicated at this point. Tachyarrhythmia SVT Hypertension Hyperlipidemia Abnormal D-dimer Recent left knee surgery Cardiac suggestion for management: Managed on telemetry Follow-up electrolytes and kidney function tests and correct abnormalities Keep potassium above 4 and magnesium above 2 Flecainide: 100 mg p.o. b.i.d. Metoprolol tartrate: 50 mg p.o. b.i.d. Follow-up on urine toxicology Consideration for SVT ablation can be justified (as outpatient). Cardiac maldonado, can be followed as outpatient Further evaluation and management depends on the above and clinical course A total of 55 minutes was spent reviewing the patient record, examining the patient, making a diagnostic and therapeutic plan, discussing this plan with medical personnel, following up on diagnostic studies and following the patient for clinical stability excluding any and all procedures. At least 50% of this time was spent in direct, [id number] contact. Thank you for allowing me to participate in this patient's care. Further recommendations will depend on patient's clinical course. Please do not hesitate to contact me if you have any questions or concerns. This medical document was created using electronic medical record system with [employer] computerized dictation system. Although this document has been carefully reviewed, there may still be some phonetic and typographical errors. These areas are purely typographical due to the imperfection of the software programs, and do not reflect any compromise in the patient's medical care. Plan discussed with: Patient, Other (nurse) Capillary Refill: < 3 seconds PHYLICIA DEL VALLE MD Jan 07, 2025 08:54
[2025-01-07] MEDS ORDERED: MET25T PO (10:39)
[2025-01-07] MEDS ORDERED: FLE50T PO (10:39)
--- NOTE | 2025-01-07 14:36 | DVHDS2 ---
Discharge Summary Date of Admission Jan 05, 2025 at 14:46 Date of Discharge: Jan 07, 2025 Admitting Diagnosis AFib with RVR Labs/Diagnostic Data: Laboratory Results Test 01/07/25 05:50 01/05/25 18:50 01/05/25 11:35 01/05/25 09:01 White Blood Count 5.4 10^3/uL (4.4-10.8) Red Blood Count 4.07 10^6/uL (4.0-5.20) Hemoglobin 12.1 g/dL (12.2-16.2) Hematocrit 35.7 % (36.0-46.0) Mean Corpuscular Volume 87.7 fL (80.0-100.0) Mean Corpuscular Hemoglobin 29.8 pg (28.0-32.0) Mean Corpuscular Hemoglobin Concent 34.0 g/dL (32.0-36.0) Red Cell Distribution Width 14.9 % (11.8-14.3) Platelet Count 332 10^3/uL (140-450) Mean Platelet Volume 8.3 fL (6.9-10.8) Neutrophils (%) (Auto) 61.6 % (37.0-80.0) Lymphocytes (%) (Auto) 25.6 % (10.0-50.0) Monocytes (%) (Auto) 8.6 % (0.0-12.0) Eosinophils (%) (Auto) 3.5 % (0.0-7.0) Basophils (%) (Auto) 0.7 % (0.0-2.0) Neutrophils # (Auto) 3.3 10 ^3/uL (1.6-8.6) Lymphocytes # (Auto) 1.4 10 ^3/uL (0.4-5.4) Monocytes # (Auto) 0.5 10 ^3/uL (0-1.3) Eosinophils # (Auto) 0.2 10 ^3/uL (0-0.8) Basophils # (Auto) 0 10 ^3/uL (0-0.2) Nucleated Red Blood Cells 0.2 % Sodium Level 140 mmol/L (136-145) Potassium Level 3.9 mmol/L (3.5-5.1) Chloride Level 104 mmol/L (98-107) Carbon Dioxide Level 27 mmol/L (20-31) Anion Gap 9 (5-15) Blood Urea Nitrogen 10 mg/dL (9-23) Creatinine 0.65 mg/dL (0.550-1.02) Glomerular Filtration Rate Calc 105 mL/min (>90) BUN/Creatinine Ratio 15.4 (10.0-20.0) Serum Glucose 81 mg/dL (74-106) Calcium Level 9.0 mg/dL (8.7-10.4) Total Bilirubin 0.6 mg/dL (0.2-1.0) Aspartate Amino Transferase (AST) 22 U/L (13-40) Alanine Aminotransferase (ALT) 15 U/L (7-40) Alkaline Phosphatase 99 U/L (46-116) Total Protein 6.3 g/dL (5.7-8.2) Albumin 3.9 g/dL (3.2-4.8) D-Dimer, Quantitative 1.73 mg/L FEU (0.0-0.49) Troponin I High Sensitivity 13 ng/L (</=34) Urine Color Light-yellow (Yellow) Urine Clarity Clear (Clear) Urine pH 7.0 (5.0-9.0) Urine Specific [place] 1.003 (1.001-1.035) Urine Protein Negative (Negative) Urine Ketones Negative (Negative) Urine Blood Negative /uL (Negative) Urine Nitrite Negative (Negative) Urine Bilirubin Negative (Negative) Urine Urobilinogen Normal mg/dL (Negative) Urine Leukocyte Esterase Negative /uL (Negative) Urine RBC None seen /hpf (0 - 4) Urine Microscopic WBC < 1 /HPF (0-5) Urine Squamous Epithelial Cells Few /hpf (<5) Urine Bacteria None seen /hpf (None Seen) Urine Glucose Normal mg/dL (Normal) Test 01/05/25 08:36 Magnesium Level 1.9 mg/dL (1.6-2.6) B-Type Natriuretic Peptide 135.33 pg/mL (0-100) Thyroid Stimulating Hormone (TSH) 2.33 uIU/mL (0.55-4.78) Other Laboratory Tests 01/07/25 05:50 Brief Hx & Hospital Course: Patient is a 54-year-old female presenting to the emergency room for the reports of palpitations, left arm paresthesia, dyspnea, as well as diaphoresis. Onset of symptoms began approximately 1 hour prior to coming in the hospital without any relief in her symptoms. Patient does report having a history of palpitations/atrial fibrillation with fast heart rate on three other occasions, last reported two years ago. At the time of assessment, the patient is now in sinus rhythm after receiving IV Lopressor. She reports having an echocardiogram approximately three months ago, with her last stress test being approximately two years ago. Her litigation examiner is reported to be Dr. Palm. Patient will be admitted to the hospital for further treatment. Cardiology consultation will be placed. Patient will be restarted on her home antiarrhythmic medications including flecainide and metoprolol tartrate. Patient is not on current anticoagulation, only receiving single antiplatelet therapy with aspirin. Cardiology recommendation appreciated. Flecainide 100 mg b.i.d.. Increase metoprolol 25 mg b.i.d. to 50 mg b.i.d.. Heart rate is stable. Patient is medically stable to be discharged home and follow up with the outpatient litigation examiner and PCP in one week Condition at Discharge: Good Final Diagnosis/Problems List Afib with RVR Discharge Disposition: Home Discharge Instruct/Medications Diet: Cardiac 2g Na,low cholest Activity: No Restrictions, As Tolerated Follow Up/Referral: Follow up with PCP in 1 week. Follow up with Cardiology in 1 week Scheduled Acetazolamide (Acetazolamide), 500 MG PO Q4HR, (Reported) Aspirin (Brett Aspirin Ec Low Dose), 1 TAB PO DAILY, (Reported) Cholecalciferol (Vitamin D3), 1 TAB PO DAILY, (Reported) Flecainide Acetate (Flecainide Acetate), 1 TAB PO BID, (Reported) Flecainide Acetate (Tambocor Tablet), 100 MG PO BID Fluoxetine Hcl (Fluoxetine Hcl), 1 CAP PO DAILY, (Reported) Lisinopril (Lisinopril), 20 MG PO DAILY, (Reported) Magnesium Oxide (mg Supplement (Magnesium-Oxide), 1 TAB PO BID, (Reported) Metoprolol Tartrate (Lopressor), 12.5 MG PO BID Metoprolol Tartrate (Lopressor), 50 MG PO BID Multiple Vitamins W/ Minerals (Multivitamin), 1 PO DAILY, (Reported) Omeprazole (Gnp Omeprazole), 40 MG PO DAILY, (Reported) Pravastatin Sodium (Pravachol Tablet), 20 MG PO DAILY, (Reported) Miscellaneous Medications Metoprolol Tartrate (Metoprolol Tartrate), 25 MG PO, (Reported) 55 Discharge Statement: "Patient was advised to return to the ER or call 911 if any headaches, dizziness, shortness of breath, chest pain, abdominal pain, bleeding, fevers, or worsening of medical condition. Patient was counseled about treatment plan, medications, possible side effects, patientverbalized understanding. All questions were answered to the best of my ability. This discharge took greater then 30 minutes in planning, reviewing documentation, counseling the patient, and discussing with other team members." ASSESSMENT ASSESSMENT Assessment Afib with RVR Date of Service: Jan 07, 2025 Billing Provider: TRISTON BAUTISTA MD Common Visit Codes: 27933-BYJ/OBS DISCH DAY >30min TRISTON BAUTISTA MD Jan 07, 2025 14:35
--- NOTE | 2025-01-10 13:06 | ECG ---
[facility] Test Date: 2025-01-05 Test Time: 11:31:51 Pat Name: CHRISTINA LEÓN Department: ER Room: 0249T Gender: F Operations Administrative Assistant: BRENTON : 1970 Requested By: ELIZABETH VALDEZ Order Number: [id number] Reading MD: Measurements Intervals [place] Rate: 67 P: 44 [place]: 136 QRS: 6 QRSD: 97 T: 12 QT: 398 QTc: 420 Interpretive Statements Sinus rhythm Low voltage, precordial leads Please click the below link to view image of tracing.
== END 2025-01-07 16:05 | disposition home or self-care (01) | DRG 201 ==
LOC: ER 08:22 → OVERFLOW 14:46 → TELE-EAST 18:02
PROVIDERS: ADMIT Nurse Practitioner Acute Care; ATTEND Nurse Practitioner Acute Care
DX: I47.10 Supraventricular tachycardia, unspecified (principal); E11.9 Type 2 diabetes mellitus without complications; E78.5 Hyperlipidemia, unspecified; I10 Essential (primary) hypertension; F32.A Depression, unspecified; Z96.653 Presence of artificial knee joint, bilateral; Z90.49 Acquired absence of other specified parts of digestive tract; Z98.84 Bariatric surgery status; Z79.82 Long term (current) use of aspirin; Z79.899 Other long term (current) drug therapy; Z83.3 Family history of diabetes mellitus; Z87.891 Personal history of nicotine dependence
CPT/HCPCS: 36415; 71045; 71275; 80048; 80053; 81001; 83735; 83880; 84443; 84484; 85025; 85379; 93005; 93306; 93970; 96360; 96361; 99291; G0378